=== PATIENT | female | born 1950 | race Caucasian/White ===

== ENCOUNTER → 2016-06-04 | Outpatient (CLI) | payer OTHER ==
[~2016-06-04] MED LIST: CALCIUM PO; GLCSC750600 PO; HYDR-5688 PO; MULT-506 PO; ONDA4TAB10 SL; OXYC-57 PO; PANT40TA PO; SUCR1TAB29 PO; VITAMIN D PO; VTMB12100 PO
[2016-06-04 16:43] LABS: BASO % 0.3 %; BASO ABS # 0.02 K/uL (0-0.2); COMPLETE YES; EOS % 1.3 %; HEMATOCRIT 41.9 % (37-47); IG% 0.2 %; LYMPH % 42.4 %; LYMPH ABS # 2.61 K/uL (1.2-3.4); MEAN CELL VOLUME 90.1 fL (80-100); MEAN CORPUSCULAR HEMOGLOBIN 29.7 pg (25-34); MEAN CORPUSCULAR HGB CONC 32.9 g/dl (32-36); MEAN PLATELET VOLUME 10.8 fL (7.4-10.4); NEUT % 48.8 %; PLATELET COUNT 282 K/uL (130-400); RED BLOOD COUNT 4.65 M/uL (4.2-5.4); WHITE BLOOD COUNT 6.15 K/uL (4.8-10.8)
[2016-06-04 17:02] LABS: ALT/SGPT 21 U/L (12-78); AMYLASE 49 U/L (25-115); BLOOD UREA NITROGEN 16 mg/dl (7-18); BUN/CREATININE RATIO 18.6 (10-20); C-REACTIVE PROTEIN < 0.29 mg/dl (0-0.29); CALCIUM 9.7 mg/dl (8.5-10.1); CARBON DIOXIDE 25 mmol/L (21-32); CHLORIDE 106 mmol/L (98-107); CREATININE 0.88 mg/dl (0.60-1.20); GLUCOSE 86 mg/dl (70-99); POTASSIUM 4.2 mmol/L (3.5-5.1); SODIUM 141 mmol/L (136-145)
[2016-06-04 17:05] LABS: ALB/GLOB RATIO 1.1 (0.9-2); ALKALINE PHOSPHATASE 82 U/L (45-117); AST/SGOT 17 U/L (15-37)
[2016-06-09 18:34] LABS: IGA SERUM 162 mg/dL (81-463); TIS TRANS IGA 1 U/mL (<4)
== END | disposition home or self-care (01) ==
LOC: C.LAB1850 16:03
PROVIDERS: ATTEND Internal Medicine
DX: R11.2 Nausea with vomiting, unspecified (principal)

== ENCOUNTER 2016-06-06 16:40 | Observation (INO) | payer OTHER ==
[~2016-06-06] VITALS: Ht 172.7 cm; Wt 93.7 kg
[~2016-06-06 16:40] MED LIST changes: -HYDR-5688 PO; -ONDA4TAB10 SL; -PANT40TA PO; -SUCR1TAB29 PO; -VTMB12100 PO
[2016-06-06] MEDS ORDERED: ONDANSETRON INJ 2 MG/ML 2 ML VIAL IV STA (16:51)
[2016-06-06] MEDS ORDERED: SODIUM CHLORIDE 0.9% 1000ML 1,000 ML IV STA ×2 (16:51)
--- NOTE | 2016-06-06 16:57 | EMERGENCY ROOM VISIT NOTE ---
History Report prepared by Jeff: Jackie Avila Under the Supervision of: Dr. Joaquin Connolly D.O. 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 The patient states that she started experiencing intermittent sharp upper abdominal cramping starting 2 years ago. She states that she usually vomits and then the pain resolves. She states that today the pain was not resolved after the continuing vomiting. She states that yesterday she started a new medication to treat her abdominal cramping and vomiting and states that yesterday after taking the medication she felt great, but then today started experiencing symptoms. The patient states that eating food worsens her symptoms. The patient states she has been having some chest pain but associates it with the persistent vomiting, but denies any blood in her stool, or swelling or pain in her legs. 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 Review of Systems See HPI for pertinent positives & negatives. A total of 10 systems reviewed and were otherwise negative. Past Medical & Surgical Medical Problems: (1) Abdominal pain Family History Patient reports no known family medical history. Social History Smoking Status: Never Smoker Alcohol Use: occasionally Marital Status: Occupation Status: unemployed Current/Historical Medications Scheduled Cyanocobalamin (Vitamin B-12), 100 MCG PO DAILY Glucosamine-Chondroitin (Glucosamine/Chondroitin), 1 TAB PO DAILY Multivitamin (Multivitamin), 1 TAB PO DAILY Pantoprazole (Protonix), 40 MG PO 2XWK Allergies Coded Allergies: No Known Allergies (Unverified , 06/06/16) Physical Exam Vital Signs Date Time Temp Pulse Resp B/P Pulse Ox O2 Delivery O2 Flow Rate FiO2 06/06/16 21:45 80 23 124/80 95 Room Air 06/06/16 21:38 91 06/06/16 19:55 Nasal Cannula 2.0 06/06/16 19:53 86 14 124/90 90 06/06/16 18:52 80 28 142/86 95 Room Air 06/06/16 17:28 75 06/06/16 16:44 36.7 77 24 135/94 94 Room Air Physical Exam GENERAL: Patient is awake, alert, and in no acute distress.Patient appears very anxious and uncomfortable. EYES: The conjunctivae are clear. The pupils are round and reactive. EARS, NOSE, MOUTH AND THROAT: The nose is without any evidence of any deformity. Mucous membranes are dry tongue is midline NECK: The neck is nontender and supple. RESPIRATORY: Normal respiratory effort is noted there is no evidence of wheezing rhonchi or rales CARDIOVASCULAR: Tachycardic rate and regular rhythm noted there no murmurs noted to auscultation. GASTROINTESTINAL: The abdomen is moderately distended but soft, no guarding or rigidity. MUSCULOSKELETAL/EXTREMITIES: There is no evidence of gross deformity full range of motion is noted in the hips and shoulders. SKIN: There is no obvious evidence of any rash. There are no petechiae, pallor or cyanosis noted. Trace pedal edema noted. NEUROLOGIC: Patient is awake alert and oriented x3. Medical Decision & Procedures ER Provider Diagnostic Interpretation: X-ray results as stated below per interpretation by me and the radiologist. ABDOMEN 2VIEW W/PA CHEST RTN CLINICAL HISTORY: Abdominal pain and vomiting COMPARISON STUDY: April 2011 FINDINGS: The heart is mildly enlarged. There is been interval increase in size of a very large hiatal hernia containing a large air-fluid level. No free air is visualized. There is no focal pulmonary consolidation. Erect and supine views the abdomen reveal no abnormally dilated loops of large or small bowel. There are no transition zones indicate bowel obstruction. There are surgical clips in the right upper quadrant consistent with a prior cholecystectomy. IMPRESSION: 1. Interval increase in the size of a very large hiatal hernia containing a large air-fluid level 2. No evidence of small bowel obstruction. No evidence of free air. Electronically signed by: Oscar Galarza M.D. 06/06/2016 5:52 PM Dictated Date/Time: 06/06/2016 5:[address] results as stated below per my review and radiologist interpretation. CT ABD/PELVIS IV AND ORAL CONT CLINICAL HISTORY: Epigastric abdominal pain COMPARISON STUDY: None. TECHNIQUE: Following the IV administration of 116 mL of Optiray-320, CT scan of the abdomen and pelvis was performed from the lung bases to the proximal femurs. Images are reviewed in the axial, sagittal, and coronal planes. IV contrast was administered without complication. CT DOSE: FINDINGS: Lower chest: There is a large paraesophageal hiatal hernia Liver: There is mild hepatic steatosis. There is minimal prominence of the intrahepatic biliary ducts most pronounced in the right lobe. No focal masses are visualized Gallbladder: Surgically absent. There is mild dilatation the common bile duct which measures 8 mm Spleen: Normal in size and attenuation. Pancreas: There is a 15 mm cystic/microcystic lesion within the pancreatic head. There is no associated ductal dilatation. 12 month follow-up is recommended, unless the patient desires additional workup at this time. Adrenal glands: Unremarkable. Kidneys: There is symmetric renal cortical enhancement. The kidneys are normal in size without hydronephrosis. Bowel: There are no transition zones indicate bowel obstruction. The appendix appears normal. There is diverticulosis. There are no acute peridiverticular inflammatory changes. Peritoneum: There is no intraperitoneal free air or abdominal ascites. Vasculature: The abdominal aorta is normal in course and caliber. Adenopathy: None. Pelvic viscera: The bladder, and pelvic viscera are unremarkable. Skeletal structures: No destructive osseous lesions are seen. IMPRESSION: 1. Large paraesophageal hernia. No evidence of gastric outlet obstruction 2. Normal appendix 3. Diverticulosis. No evidence of acute peridiverticular inflammatory change 4. 15 mm cystic/microcystic lesion within the pancreatic head. Electronically signed by: Oscar Galarza M.D. 06/06/2016 7:53 PM Dictated Date/Time: 06/06/2016 7:[address] OF THE CHEST WITH IV CONTRAST CLINICAL HISTORY: Epigastric pain COMPARISON STUDY: Chest x-ray dated 06/06/2016 TECHNIQUE: Following the IV administration of 116 mL of Optiray-320, CT of the thorax was performed from the thoracic inlet to the lung bases. Images are reviewed in the axial, sagittal, and coronal planes. IV contrast was administered without complication. CT DOSE: 1048.10 mGy.cm FINDINGS: Thyroid: There is a 27 mm right lobe thyroid nodule. Thoracic aorta: The thoracic aorta is normal in course and caliber, noting standard 3-vessel arch anatomy. No aneurysm or dissection is seen. Pulmonary vasculature: The pulmonary trunk is normal in caliber. There are no central filling defects identified to suggest pulmonary embolus. Note that this examination was not protocoled for the evaluation of pulmonary emboli. HEART: The heart is mildly enlarged. There is no significant pericardial effusion. Lungs and pleural spaces: There are dependent atelectatic changes. There are no pleural effusions. There is no focal pulmonary consolidation. Mediastinum: There is no mediastinal lymphadenopathy. Pao: Clear. Axilla: Clear. Upper abdomen: There is a large (10 cm craniocaudad dimension) paraesophageal hiatal hernia Skeletal structures: There are no lytic or blastic osseous lesions. IMPRESSION: 1. Large paraesophageal hiatal hernia 2. No evidence of focal pulmonary consolidation 3. No evidence of pathologic adenopathy 4. 27 mm right lobe thyroid nodule Electronically signed by: Oscar Galarza M.D. 06/06/2016 7:43 PM Dictated Date/Time: 06/06/2016 7:37 PM Laboratory Results 06/06/16 17:10 Red Blood Count 4.46, Mean Corpuscular Volume 87.9, Mean Corpuscular Hemoglobin 30.9, Mean Corpuscular Hemoglobin Concent 35.2, Mean Platelet Volume 10.5, Neutrophils (%) (Auto) 65.9, Lymphocytes (%) (Auto) 25.4, Monocytes (%) (Auto) 7.5, Eosinophils (%) (Auto) 0.6, Basophils (%) (Auto) 0.3, Neutrophils # (Auto) 5.20, Lymphocytes # (Auto) 2.00, Monocytes # (Auto) 0.59, Eosinophils # (Auto) 0.05, Basophils # (Auto) 0.02 06/06/16 17:10 Test 06/06/16 17:10 06/06/16 19:00 White Blood Count 7.88 K/uL (4.8-10.8) Red Blood Count 4.46 M/uL (4.2-5.4) Hemoglobin 13.8 g/dL (12.0-16.0) Hematocrit 39.2 % (37-47) Mean Corpuscular Volume 87.9 fL (80-100) Mean Corpuscular Hemoglobin 30.9 pg (25-34) Mean Corpuscular Hemoglobin Concent 35.2 g/dl (32-36) Platelet Count 284 K/uL (130-400) Mean Platelet Volume 10.5 fL (7.4-10.4) Neutrophils (%) (Auto) 65.9 % Lymphocytes (%) (Auto) 25.4 % Monocytes (%) (Auto) 7.5 % Eosinophils (%) (Auto) 0.6 % Basophils (%) (Auto) 0.3 % Neutrophils # (Auto) 5.20 K/uL (1.4-6.5) Lymphocytes # (Auto) 2.00 K/uL (1.2-3.4) Monocytes # (Auto) 0.59 K/uL (0.11-0.59) Eosinophils # (Auto) 0.05 K/uL (0-0.5) Basophils # (Auto) 0.02 K/uL (0-0.2) RDW Standard Deviation 42.7 fL (36.4-46.3) RDW Coefficient of Variation 13.4 % (11.5-14.5) Immature Granulocyte % (Auto) 0.3 % Immature Granulocyte # (Auto) 0.02 K/uL (0.00-0.02) Prothrombin Time 10.5 SECONDS (9.0-12.0) Prothromb Time International Ratio 1.0 (0.9-1.1) Activated Partial Thromboplast Time 25.2 SECONDS (21.0-31.0) Partial Thromboplastin Ratio 1.0 Anion Gap 11.0 mmol/L (3-11) Est Creatinine Clear Calc Drug Dose 73.6 ml/min Estimated GFR () 77.2 Estimated GFR (Non- 66.6 BUN/Creatinine Ratio 19.1 (10-20) Calcium Level 10.0 mg/dl (8.5-10.1) Magnesium Level 2.2 mg/dl (1.8-2.4) Total Bilirubin 0.3 mg/dl (0.2-1) Direct Bilirubin 0.1 mg/dl (0-0.2) Aspartate Amino Transf (AST/SGOT) 18 U/L (15-37) Alanine Aminotransferase (ALT/SGPT) 21 U/L (12-78) Alkaline Phosphatase 80 U/L (45-117) Total Creatine Kinase 93 U/L (26-192) Creatine Kinase MB 0.6 ng/ml (0.5-3.6) Creatine Kinase MB Ratio 0.6 (0-3.0) Troponin I < 0.015 ng/ml (0-0.045) Total Protein 7.5 gm/dl (6.4-8.2) Albumin 4.0 gm/dl (3.4-5.0) Lipase 112 U/L (73-393) Urine Color YELLOW Urine Appearance CLOUDY (CLEAR) Urine pH 5.0 (4.5-7.5) Urine Specific [place] 1.025 (1.000-1.030) Urine Protein NEG (NEG) Urine Glucose (UA) NEG (NEG) Urine Ketones 2+ (NEG) Urine Occult Blood NEG (NEG) Urine Nitrite NEG (NEG) Urine Bilirubin NEG (NEG) Urine Urobilinogen NEG (NEG) Urine Leukocyte Esterase MODERATE (NEG) Urine WBC (Auto) 10-30 /hpf (0-5) Urine RBC (Auto) 0-4 /hpf (0-4) Urine Hyaline Casts (Auto) 1-5 /lpf (0-5) Urine Epithelial Cells (Auto) >30 /lpf (0-5) Urine Bacteria (Auto) 1+ (NEG) Laboratory results per my review. Medications Administered Medications (Trade) Dose Ordered Sig/Jluis Route Start Time Stop Time Status Last Admin Dose Admin Sodium Chloride 1,000 ml @ 999 mls/hr Q1H1M STAT IV 06/06/16 16:51 06/06/16 17:51 DC 06/06/16 17:10 999 MLS/HR Sodium Chloride (Nss 1000ml) 1,000 ml @ 200 mls/hr Q5H STAT IV 06/06/16 16:51 06/06/16 21:50 DC 06/06/16 17:12 200 MLS/HR Morphine Sulfate (MoRPHine SULFATE INJ) 4 mg Q15M PRN IV 06/06/16 17:00 06/20/16 16:59 06/06/16 18:50 4 MG Ondansetron HCl 4 mg 4 mg NOW STAT IV 06/06/16 16:51 06/06/16 16:53 DC 06/06/16 17:10 4 MG Pantoprazole Sodium/Dextrose (Protonix Inj/D5 100ml) 120 ml @ 480 mls/hr 2300 IV 06/06/16 23:00 06/06/16 23:14 DC 06/06/16 23:08 480 MLS/HR ECG Indication: vomiting Rate (beats per minute): 77 Rhythm: normal sinus Findings: no ectopy, other (No ST segment abnormalities, decreased T wave amplitude noted. ) Comparison ECG Date: 05/01/2011 Change: no significant change Change: Decreased T wave amplitude abnormality new compared to previous. ED Course 165: The patient was evaluated in room A10. A complete history and physical examination were performed. 165: Ordered Zofran Inj 4 mg IV, NSS 1,000 ml @ 200 mls/hr IV, NSS 1,000 ml @ 999 mls/hr IV. 1700: Ordered Morphine Sulfate 4 mg IV . 1811:I discussed the case with Dr. Lincoln G[facility] and he recommend s CT scan to evaluate the hiatal hernia. 1814: I reevaluated the patient and she was hemodynamically stable. 2105: I reevaluated the patient and she states that her pain was better. 2112:I discussed the case with Dr. Cullen General Surgery. He said if the patient is able to go home he will se her tomorrow but if she gets admitted he will see her in consultation. 2127: I reevaluated the patient and she states that she does not feel well enough to go home tonight. 2149:I discussed the case with Dr. John [facility]. He agreed to evaluate the patient for further management and care. Medical Decision The patient's history was concerning for nausea, vomiting, diarrhea, and abdominal pain. Differential diagnosis: Etiologies such as gastroenteritis, food borne illness, infections, appendicitis , diverticulitis, inflammatory bowel disease, obstruction, GI bleed, biliary pathology, as well as others were entertained. The patient is a 65-year-old female who presented to the emergency department for an evaluation of upper abdominal pain nausea and vomiting. The patient has had the symptoms for approximately 2 weeks. They've become very significant and constant over the last few days. The patient has noticed that every time she eats she becomes very painful in her upper abdomen and then has nausea vomiting. Previously the nausea and vomiting would relieve the symptoms however tonight she has continued pain. The patient's chest x-ray did reveal a large hiatal hernia. I was concerned that the degree of symptoms could be related to an incarcerated hiatal hernia. CT the chest abdomen and pelvis was obtained to further evaluate the cause of the patient's symptoms. The patient was treated with IV fluids IV pain medicine IV antiemetics. On subsequent reevaluation she was feeling significantly improved. I discussed her case with the on-call general surgeon. The patient had recurrence of symptoms. For this reason I discussed her case with the on-call [facility] hospitalist group. They have agreed to evaluate the patient in the emergency department for further management and disposition. Consults Time Called: 1809 Consulting Physician: Dr. Lincoln Gastroenter[facility] Returned Call: 1811 I discussed the case with Dr. Lincoln Gastroenterology and he recommend s CT scan to evaluate the hiatal hernia. Additional Consults: Time Called: 2109 Consulted Physician: Dr. Cullen General Surgery Returned Call: 2112 Additional Comments: I discussed the case with Dr. Cullen General Surgery. He said if the patient is able to go home he will se her tomorrow but if she gets admitted he will see her in consultation. Time Called: 2134 Consulted Physician: Dr. Alvaro ARMENDAR[facility] Hospitalist Returned Call: 2149 Additional Comments: I discussed the case with Dr. Alvaro ARMENDAR[facility] Hospitalist. He agreed to evaluate the patient for further management and care. Impression Primary Impression: Intractable nausea and vomiting Additional Impressions: Hiatal hernia Epigastric abdominal pain Scribe Attestation The scribe's documentation has been prepared under my direction and personally reviewed by me in its entirety. I confirm that the note above accurately reflects all work, treatment, procedures, and medical decision making performed by me. Departure Information Dispostion Being Evaluated By Hospitalist Referrals Swetha Aviles M.D. (PCP) Problem Qualifiers
[2016-06-06] MEDS: MoRPHine SULFATE 4 MG/ML 1 ML CARP\\VIAL IV PRN ×2 (17:11→18:50)
[2016-06-06] MEDS ORDERED: PANT40TA PO (17:17)
[2016-06-06] MEDS ORDERED: VTMB12100 PO (17:17)
[2016-06-06 17:20] LABS: BASO % 0.3 %; BASO ABS # 0.02 K/uL (0-0.2); COMPLETE YES; EOS % 0.6 %; HEMATOCRIT 39.2 % (37-47); IG% 0.3 %; LYMPH % 25.4 %; MEAN CELL VOLUME 87.9 fL (80-100); MEAN CORPUSCULAR HEMOGLOBIN 30.9 pg (25-34); MEAN CORPUSCULAR HGB CONC 35.2 g/dl (32-36); MEAN PLATELET VOLUME 10.5 fL (7.4-10.4); MONO % 7.5 %; NEUT % 65.9 %; PLATELET COUNT 284 K/uL (130-400); RED BLOOD COUNT 4.46 M/uL (4.2-5.4); WHITE BLOOD COUNT 7.88 K/uL (4.8-10.8)
[2016-06-06 17:30] LABS: PROTHROMBIN TIME (PATIENT) 10.5 SECONDS (9.0-12.0)
[2016-06-06 17:39] LABS: ALT/SGPT 21 U/L (12-78); BLOOD UREA NITROGEN 17 mg/dl (7-18); BUN/CREATININE RATIO 19.1 (10-20); CARBON DIOXIDE 23 mmol/L (21-32); CHLORIDE 109 mmol/L (98-107); GLUCOSE 106 mg/dl (70-99); POTASSIUM 3.9 mmol/L (3.5-5.1); SODIUM 143 mmol/L (136-145)
[2016-06-06 17:44] LABS: ALKALINE PHOSPHATASE 80 U/L (45-117); AST/SGOT 18 U/L (15-37); CKMB/CK RATIO 0.6 (0-3.0)
--- NOTE | 2016-06-06 17:53 | DIAGNOSTIC IMAGING REPORT ---
ABDOMEN 2VIEW W/PA CHEST RTN CLINICAL HISTORY: Abdominal pain and vomiting COMPARISON STUDY: April 2011 FINDINGS: The heart is mildly enlarged. There is been interval increase in size of a very large hiatal hernia containing a large air-fluid level. No free air is visualized. There is no focal pulmonary consolidation. Erect and supine views the abdomen reveal no abnormally dilated loops of large or small bowel. There are no transition zones indicate bowel obstruction. There are surgical clips in the right upper quadrant consistent with a prior cholecystectomy. IMPRESSION: 1. Interval increase in the size of a very large hiatal hernia containing a large air-fluid level 2. No evidence of small bowel obstruction. No evidence of free air. Electronically signed by: Oscar Galarza M.D. 06/06/2016 5:52 PM Dictated Date/Time: 06/06/2016 5:51 PM
[2016-06-06] MEDS ORDERED: OPTIRAY 320 IV PRN (18:45)
[2016-06-06 19:20] LABS: URINE APPEARANCE CLOUDY (CLEAR); URINE BILIRUBIN NEG (NEG); URINE COLOR YELLOW; URINE EPITHELIAL CELL AUTO >30 /lpf (0-5); URINE NITRITE NEG (NEG); URINE SPECIFIC GRAVITY 1.025 (1.000-1.030); UROBILINOGEN NEG (NEG)
[2016-06-06 19:22] LABS: MANUAL MICROSCOPIC REQUIRED? NO; REVIEW REQ? NO
--- NOTE | 2016-06-06 19:44 | DIAGNOSTIC IMAGING REPORT ---
CT OF THE CHEST WITH IV CONTRAST CLINICAL HISTORY: Epigastric pain COMPARISON STUDY: Chest x-ray dated 06/06/2016 TECHNIQUE: Following the IV administration of 116 mL of Optiray-320, CT of the thorax was performed from the thoracic inlet to the lung bases. Images are reviewed in the axial, sagittal, and coronal planes. IV contrast was administered without complication. CT DOSE: 1048.10 mGy.cm FINDINGS: Thyroid: There is a 27 mm right lobe thyroid nodule. Thoracic aorta: The thoracic aorta is normal in course and caliber, noting standard 3-vessel arch anatomy. No aneurysm or dissection is seen. Pulmonary vasculature: The pulmonary trunk is normal in caliber. There are no central filling defects identified to suggest pulmonary embolus. Note that this examination was not protocoled for the evaluation of pulmonary emboli. HEART: The heart is mildly enlarged. There is no significant pericardial effusion. Lungs and pleural spaces: There are dependent atelectatic changes. There are no pleural effusions. There is no focal pulmonary consolidation. Mediastinum: There is no mediastinal lymphadenopathy. Pao: Clear. Axilla: Clear. Upper abdomen: There is a large (10 cm craniocaudad dimension) paraesophageal hiatal hernia Skeletal structures: There are no lytic or blastic osseous lesions. IMPRESSION: 1. Large paraesophageal hiatal hernia 2. No evidence of focal pulmonary consolidation 3. No evidence of pathologic adenopathy 4. 27 mm right lobe thyroid nodule Electronically signed by: Oscar Galarza M.D. 06/06/2016 7:43 PM Dictated Date/Time: 06/06/2016 7:37 PM
--- NOTE | 2016-06-06 19:54 | DIAGNOSTIC IMAGING REPORT ---
CT ABD/PELVIS IV AND ORAL CONT CLINICAL HISTORY: Epigastric abdominal pain COMPARISON STUDY: None. TECHNIQUE: Following the IV administration of 116 mL of Optiray-320, CT scan of the abdomen and pelvis was performed from the lung bases to the proximal femurs. Images are reviewed in the axial, sagittal, and coronal planes. IV contrast was administered without complication. CT DOSE: FINDINGS: Lower chest: There is a large paraesophageal hiatal hernia Liver: There is mild hepatic steatosis. There is minimal prominence of the intrahepatic biliary ducts most pronounced in the right lobe. No focal masses are visualized Gallbladder: Surgically absent. There is mild dilatation the common bile duct which measures 8 mm Spleen: Normal in size and attenuation. Pancreas: There is a 15 mm cystic/microcystic lesion within the pancreatic head. There is no associated ductal dilatation. 12 month follow-up is recommended, unless the patient desires additional workup at this time. Adrenal glands: Unremarkable. Kidneys: There is symmetric renal cortical enhancement. The kidneys are normal in size without hydronephrosis. Bowel: There are no transition zones indicate bowel obstruction. The appendix appears normal. There is diverticulosis. There are no acute peridiverticular inflammatory changes. Peritoneum: There is no intraperitoneal free air or abdominal ascites. Vasculature: The abdominal aorta is normal in course and caliber. Adenopathy: None. Pelvic viscera: The bladder, and pelvic viscera are unremarkable. Skeletal structures: No destructive osseous lesions are seen. IMPRESSION: 1. Large paraesophageal hernia. No evidence of gastric outlet obstruction 2. Normal appendix 3. Diverticulosis. No evidence of acute peridiverticular inflammatory change 4. 15 mm cystic/microcystic lesion within the pancreatic head. Electronically signed by: Oscar Galarza M.D. 06/06/2016 7:53 PM Dictated Date/Time: 06/06/2016 7:43 PM
[2016-06-06] MEDS ORDERED: ALUMINUM/MAGNESIUM/SIMETH (MAALOX MAX) 30 ML UDC PO PRN (22:45)
[2016-06-06] MEDS ORDERED: ACETAMINOPHEN 325 MG TAB PO PRN (22:45)
[2016-06-06] MEDS ORDERED: ONDANSETRON INJ 2 MG/ML 2 ML VIAL IV PRN (22:45)
[2016-06-06] MEDS ORDERED: POLYETHYLENE (MIRALAX) 17 GM PACK PO PRN ×2 (22:45)
[2016-06-06] MEDS ORDERED: MAGNESIUM HYDROXIDE SUSP 30 ML UDC PO PRN (22:45)
--- NOTE | 2016-06-06 22:48 | History and Physical ---
History & Physical Date & Time of Service: Jun 06, 2016 at 22:42 Chief Complaint: Stomach Cramps; Vomiting Primary Care Physician: Swetha Aviles M.D. History of Present Illness Source: patient, spouse Mrs Ghislaine Kaminski is a 65 year old female with history of "GI issues" for the last two years. She reports after eating daily she gets abdominal discomfort, which comes and goes on its own, and usually resolves after she vomits. She saw Dr Lincoln recently who had arranged some scans to be done in the near future. Earlier today she started to feel nauseated and had persistent nausea and vomiting. She reported even sips of water would make her gag. She was also started on a new medication to treat abdominal cramping which helped her symptoms yesterday, but today had the same symptoms. Currently, she reports feeling better after receiving anti-emetics. She feels thirsty. She denies any chest pain, difficulty breathing, or swelling of the legs. Past Medical/Surgical History Medical Problems: (1) Abdominal pain Status: Chronic Family History Patient reports no known family medical history. No pertinent FHx Social History Smoking Status: Never Smoker Marital Status: Housing status: lives with family Occupational Status: unemployed Immunizations History of Influenza Vaccine: Yes History of Tetanus Vaccine?: Yes History of Pneumococcal: No History of Hepatitis B Vaccine: No Multi-Drug Resistant Organisms History of MDRO: No Allergies Coded Allergies: No Known Allergies (Unverified , 06/06/16) Home Medications Scheduled Cyanocobalamin (Vitamin B-12), 100 MCG PO DAILY Glucosamine-Chondroitin (Glucosamine/Chondroitin), 1 TAB PO DAILY Multivitamin (Multivitamin), 1 TAB PO DAILY Pantoprazole (Protonix), 40 MG PO 2XWK Review of Systems See HPI for pertinent positives & negatives. A total of 10 systems reviewed and were otherwise negative. Physical Exam Vital Signs Date Time Temp Pulse Resp B/P Pulse Ox O2 Delivery O2 Flow Rate FiO2 06/06/16 21:45 80 23 124/80 95 Room Air 06/06/16 21:38 91 06/06/16 19:55 Nasal Cannula 2.0 06/06/16 19:53 86 14 124/90 90 06/06/16 18:52 80 28 142/86 95 Room Air 06/06/16 17:28 75 1/26/17 16:44 36.7 77 24 135/94 94 Room Air General Appearance: WD/WN, no apparent distress Head: normocephalic, atraumatic Eyes: normal inspection ENT: hearing grossly normal Neck: supple, no JVD Respiratory/Chest: lungs clear, normal breath sounds, no respiratory distress Cardiovascular: regular rate, rhythm, no murmur, normal peripheral pulses Abdomen/GI: normal bowel sounds, non tender, soft Back: no CVA tenderness, no muscle spasm, normal range of motion Extremities/Musculoskelatal: no pedal edema Neurologic/Psych: alert, normal mood/affect, oriented x 3 Skin: no rash Diagnostics Laboratory Results Results Past 24 Hours Test 06/06/16 17:10 06/06/16 19:00 Range/Units White Blood Count 7.88 4.8-10.8 K/uL Red Blood Count 4.46 4.2-5.4 M/uL Hemoglobin 13.8 12.0-16.0 g/dL Hematocrit 39.2 37-47 % Mean Corpuscular Volume 87.9 80-100 fL Mean Corpuscular Hemoglobin 30.9 25-34 pg Mean Corpuscular Hemoglobin Concent 35.2 32-36 g/dl Platelet Count 284 130-400 K/uL Mean Platelet Volume 10.5 7.4-10.4 fL Neutrophils (%) (Auto) 65.9 % Lymphocytes (%) (Auto) 25.4 % Monocytes (%) (Auto) 7.5 % Eosinophils (%) (Auto) 0.6 % Basophils (%) (Auto) 0.3 % Neutrophils # (Auto) 5.20 1.4-6.5 K/uL Lymphocytes # (Auto) 2.00 1.2-3.4 K/uL Monocytes # (Auto) 0.59 0.11-0.59 K/uL Eosinophils # (Auto) 0.05 0-0.5 K/uL Basophils # (Auto) 0.02 0-0.2 K/uL RDW Standard Deviation 42.7 36.4-46.3 fL RDW Coefficient of Variation 13.4 11.5-14.5 % Immature Granulocyte % (Auto) 0.3 % Immature Granulocyte # (Auto) 0.02 0.00-0.02 K/uL Prothrombin Time 10.5 9.0-12.0 SECONDS Prothromb Time International Ratio 1.0 0.9-1.1 Activated Partial Thromboplast Time 25.2 21.0-31.0 SECONDS Partial Thromboplastin Ratio 1.0 Sodium Level 143 136-145 mmol/L Potassium Level 3.9 3.5-5.1 mmol/L Chloride Level 109 98-107 mmol/L Carbon Dioxide Level 23 21-32 mmol/L Anion Gap 11.0 3-11 mmol/L Blood Urea Nitrogen 17 7-18 mg/dl Creatinine 0.90 0.60-1.20 mg/dl Est Creatinine Clear Calc Drug Dose 73.6 ml/min Estimated GFR () 77.2 Estimated GFR (Non- 66.6 BUN/Creatinine Ratio 19.1 10-20 Random Glucose 106 70-99 mg/dl Calcium Level 10.0 8.5-10.1 mg/dl Magnesium Level 2.2 1.8-2.4 mg/dl Total Bilirubin 0.3 0.2-1 mg/dl Direct Bilirubin 0.1 0-0.2 mg/dl Aspartate Amino Transf (AST/SGOT) 18 15-37 U/L Alanine Aminotransferase (ALT/SGPT) 21 12-78 U/L Alkaline Phosphatase 80 45-117 U/L Total Creatine Kinase 93 26-192 U/L Creatine Kinase MB 0.6 0.5-3.6 ng/ml Creatine Kinase MB Ratio 0.6 0-3.0 Troponin I < 0.015 0-0.045 ng/ml Total Protein 7.5 6.4-8.2 gm/dl Albumin 4.0 3.4-5.0 gm/dl Lipase 112 73-393 U/L Urine Color YELLOW Urine Appearance CLOUDY CLEAR Urine pH 5.0 4.5-7.5 Urine Specific [place] 1.025 1.000-1.030 Urine Protein NEG NEG Urine Glucose (UA) NEG NEG Urine Ketones 2+ NEG Urine Occult Blood NEG NEG Urine Nitrite NEG NEG Urine Bilirubin NEG NEG Urine Urobilinogen NEG NEG Urine Leukocyte Esterase MODERATE NEG Urine WBC (Auto) 10-30 0-5 /hpf Urine RBC (Auto) 0-4 0-4 /hpf Urine Hyaline Casts (Auto) 1-5 0-5 /lpf Urine Epithelial Cells (Auto) >30 0-5 /lpf Urine Bacteria (Auto) 1+ NEG Microbiology Results 06/06/16 Urine Culture, Received Pending Diagnostic Radiology ABDOMEN 2VIEW W/PA CHEST RTN CLINICAL HISTORY: Abdominal pain and vomiting COMPARISON STUDY: April 2011 FINDINGS: The heart is mildly enlarged. There is been interval increase in size of a very large hiatal hernia containing a large air-fluid level. No free air is visualized. There is no focal pulmonary consolidation. Erect and supine views the abdomen reveal no abnormally dilated loops of large or small bowel. There are no transition zones indicate bowel obstruction. There are surgical clips in the right upper quadrant consistent with a prior cholecystectomy. IMPRESSION: 1. Interval increase in the size of a very large hiatal hernia containing a large air-fluid level 2. No evidence of small bowel obstruction. No evidence of free air. Electronically signed by: Oscar Galarza M.D. 06/06/2016 5:52 PM Dictated Date/Time: 06/06/2016 5:[address] results as stated below per my review and radiologist interpretation. CT ABD/PELVIS IV AND ORAL CONT CLINICAL HISTORY: Epigastric abdominal pain COMPARISON STUDY: None. TECHNIQUE: Following the IV administration of 116 mL of Optiray-320, CT scan of the abdomen and pelvis was performed from the lung bases to the proximal femurs. Images are reviewed in the axial, sagittal, and coronal planes. IV contrast was administered without complication. CT DOSE: FINDINGS: Lower chest: There is a large paraesophageal hiatal hernia Liver: There is mild hepatic steatosis. There is minimal prominence of the intrahepatic biliary ducts most pronounced in the right lobe. No focal masses are visualized Gallbladder: Surgically absent. There is mild dilatation the common bile duct which measures 8 mm Spleen: Normal in size and attenuation. Pancreas: There is a 15 mm cystic/microcystic lesion within the pancreatic head. There is no associated ductal dilatation. 12 month follow-up is recommended, unless the patient desires additional workup at this time. Adrenal glands: Unremarkable. Kidneys: There is symmetric renal cortical enhancement. The kidneys are normal in size without hydronephrosis. Bowel: There are no transition zones indicate bowel obstruction. The appendix appears normal. There is diverticulosis. There are no acute peridiverticular inflammatory changes. Peritoneum: There is no intraperitoneal free air or abdominal ascites. Vasculature: The abdominal aorta is normal in course and caliber. Adenopathy: None. Pelvic viscera: The bladder, and pelvic viscera are unremarkable. Skeletal structures: No destructive osseous lesions are seen. IMPRESSION: 1. Large paraesophageal hernia. No evidence of gastric outlet obstruction 2. Normal appendix 3. Diverticulosis. No evidence of acute peridiverticular inflammatory change 4. 15 mm cystic/microcystic lesion within the pancreatic head. Electronically signed by: Oscar Galarza M.D. 06/06/2016 7:53 PM Dictated Date/Time: 06/06/2016 7:[address] OF THE CHEST WITH IV CONTRAST CLINICAL HISTORY: Epigastric pain COMPARISON STUDY: Chest x-ray dated 06/06/2016 TECHNIQUE: Following the IV administration of 116 mL of Optiray-320, CT of the thorax was performed from the thoracic inlet to the lung bases. Images are reviewed in the axial, sagittal, and coronal planes. IV contrast was administered without complication. CT DOSE: 1048.10 mGy.cm FINDINGS: Thyroid: There is a 27 mm right lobe thyroid nodule. Thoracic aorta: The thoracic aorta is normal in course and caliber, noting standard 3-vessel arch anatomy. No aneurysm or dissection is seen. Pulmonary vasculature: The pulmonary trunk is normal in caliber. There are no central filling defects identified to suggest pulmonary embolus. Note that this examination was not protocoled for the evaluation of pulmonary emboli. HEART: The heart is mildly enlarged. There is no significant pericardial effusion. Lungs and pleural spaces: There are dependent atelectatic changes. There are no pleural effusions. There is no focal pulmonary consolidation. Mediastinum: There is no mediastinal lymphadenopathy. Pao: Clear. Axilla: Clear. Upper abdomen: There is a large (10 cm craniocaudad dimension) paraesophageal hiatal hernia Skeletal structures: There are no lytic or blastic osseous lesions. IMPRESSION: 1. Large paraesophageal hiatal hernia 2. No evidence of focal pulmonary consolidation 3. No evidence of pathologic adenopathy 4. 27 mm right lobe thyroid nodule Electronically signed by: Oscar Galarza M.D. 06/06/2016 7:43 PM Dictated Date/Time: 06/06/2016 7:37 PM Normal EKG Impression Assessment and Plan 65 yo F with large para-esophageal hernia, causing abdominal symptoms over 2 years, who presents with intractable nausea and vomiting. Plan: Para-esophageal hernia - Dr Case consulted - Dr Cullen (General Surgery) consulted - Protonix drip Nausea/vomiting - Zofran, Phenergan PRN - IV fluids - Hold her home vitamin b12 and multivitamin Level of Care Med/Surg Resuscitation Status FULL RESUSCITATION VTE Prophylaxis VTE Risk Assessment Done? Y/N: Yes Risk Level: Moderate Given or contraindicated: Unfractionated heparin SQ Resident Tracking Resident Involvement: Resident Care Provided Care Provided: [facility] Medicine Assessment and Plan ATTENDING ADDENDUM: I have seen and examined this patient, have directed their medical care, have supervised the medical doctor, and agree with the H&P as noted above, with the following additions below. History of Present Illness: The patient is a 65-year-old female who reports 2 years of abdominal discomfort after eating daily which usually resolves after she vomits. She recently saw a malt house operator Dr. Lincoln, who had arranged for some multi-upcoming studies to be done however, her symptoms intensified with worsening nausea and vomiting to the point that even sips of water will make her gag. She was recently started on Carafate, which briefly helped her symptoms, and presents emergency department for assessment today. After having received reflux medications and Zofran IV, she does feel mildly improved but still has significant nausea and abdominal discomfort. Next Review of Systems: The patient denies palpitations, lower extremity swelling, vision change, hearing change, sore throat, fevers, chills, sweats, pelvic pain, blood in urine or stool, dysuria, urinary frequency or urgency, lightheadedness, dizziness, headache, memory loss, rash, abnormal bruising or bleeding, imbalance , focal weakness, numbness or tingling in arms or legs, arthralgias or myalgias , back or neck pain, night sweats, or allergy symptoms. The review of systems is otherwise negative other than for that already noted above, and at least 10 systems have been reviewed. Physical Exam: The patient is awake, well-developed and adequately nourished, alert and oriented 3, normocephalic and atraumatic, lying in bed and in mild acute distress secondary to epigastric discomfort. HEENT--PERRL, EOMI, mucous membranes moist, and oropharynx normal. Neck--supple, no JVD or bruits, thyroid normal, trachea midline, no adenopathy. Heart--normal S1 and S2, no extra beats, no murmurs, rubs or gallops. Lungs--clear bilaterally , no respiratory distress, no accessory muscle use. Abdomen--normal bowel sounds and soft, tender over epigastrium area, nondistended. Extremities--no cyanosis, clubbing or edema. There are good distal pulses b/l. Dermatologic--normal skin turgor, normal color, warm and dry, no abnormal lymph nodes, no rash. Neurologic--cranial nerves II through XII grossly intact, motor and sensory examination normal. Rheumatologic--normal range of motion, nontender, muscles and joints. Psychiatric--normal affect. Assessment and Plan: Large paraesophageal hiatal hernia, with no focal chronic consolidation, and no evidence of pathologic adenopathy. The patient be admitted to the medical floor , and will be allowed to have sips of water. She'll be placed on Protonix 40 mg IV, Zofran 4 mg IV every 6 hours when necessary. We'll consult her malt house operator Dr. Lincoln, and consult Dr. Cullen, from general surgery, who is aware of her processes in the emergency department. She is very symptomatic. And certainly it is in consideration of being a surgical candidate. If her symptoms should worsen overnight, IV metoclopramide will be administered. 27 mm right thyroid lobe nodule--check a TSH, free T4, free T3, will need to get a thyroid ultrasound and consideration for biopsy.
[2016-06-06] MEDS ORDERED: IV FLUIDS COMPLETED PRN (23:00)
[2016-06-06] MEDS ORDERED: PANTOprazole INJ 80 MG in DEXTROSE 5% 100ML IV SCH (23:00)
[2016-06-06] MEDS: PANTOprazole INJ 40 MG in DEXTROSE 5% 100ML IV SCH ×2 (23:25→23:28)
[2016-06-07] VITALS: BP 115/69; PULSE 66; TEMP 36.7; O2SAT 93
[2016-06-07] MEDS: SODIUM CHLOR 0.45% + 20MEQ KCL 1,000 ML IV SCH ×3 (00:29→18:06)
[2016-06-07] MEDS: HEPARIN SOD 5000 UNIT/0.5 ML CARP SQ SCH ×2 (00:30→10:24)
[2016-06-07 03:30] VITALS: Ht 172.7 cm; Wt 93.7 kg
[2016-06-07] MEDS: PANTOprazole INJ 40 MG in DEXTROSE 5% 100ML IV SCH ×4 (03:56→19:26)
[2016-06-07 06:41] LABS: BASO % 0.3 %; BASO ABS # 0.02 K/uL (0-0.2); COMPLETE YES; EOS % 1.1 %; HEMATOCRIT 35.6 % (37-47); IG% 0.1 %; LYMPH % 40.8 %; LYMPH ABS # 3.01 K/uL (1.2-3.4); MEAN CELL VOLUME 89.7 fL (80-100); MEAN CORPUSCULAR HEMOGLOBIN 29.5 pg (25-34); MEAN CORPUSCULAR HGB CONC 32.9 g/dl (32-36); MEAN PLATELET VOLUME 10.1 fL (7.4-10.4); MONO % 9.6 %; NEUT % 48.1 %; PLATELET COUNT 227 K/uL (130-400); RED BLOOD COUNT 3.97 M/uL (4.2-5.4); WHITE BLOOD COUNT 7.38 K/uL (4.8-10.8)
[2016-06-07 07:00] VITALS: BP 96/63; PULSE 65; TEMP 36.8; O2SAT 93
[2016-06-07 07:35] LABS: BUN/CREATININE RATIO 13.3 (10-20); CALCIUM 8.6 mg/dl (8.5-10.1); CREATININE 0.82 mg/dl (0.60-1.20); POTASSIUM 3.8 mmol/L (3.5-5.1)
[2016-06-07 07:43] LABS: ALB/GLOB RATIO 1.1 (0.9-2); THYROID STIMULATING HORMONE 0.078 uIu/ml (0.300-4.500)
[2016-06-07] MEDS ORDERED: PNEUMOCOCCAL POLYSACCHARIDES 25 MCG/0.5 ML VIAL/SYR IM. ONE (08:00)
[2016-06-07] MEDS ORDERED: PNEUMOCOCCAL ADMINISTRATION CHARGE ONE (08:00)
--- NOTE | 2016-06-07 09:35 | Gastrointestinal Consultation ---
Gastrointestinal Consultation Date of Consultation: Jun 07, 2016 Attending Physician: Dr. Gardner Consulting Physician: Tashia Blankenship PA-C Reason for Consultation: Large Esophageal Hernia History of Present Illness Patient is a 65 year old female who presents to the hospital after experiencing consistent abdominal discomfort that had previously been intermittent. She reports that the pain is epigastric. It worsens with eating and improves if she forces herself to vomit. She recently saw Dr. Lincoln in the office and was scheduled for outpatient testing as well as placed on PPI & Carafate therapy. She reports that even drinking small volumes of liquids causes her to vomit. As for a GI work-up, she has been on several PPI therapies previously. She underwent a cholecystectomy without improvement of her symptoms. She had an EGD in July [address] Mendez of [facility] that was unremarkable with the exception of her hiatal hernia. She reports she also had a GI work-up in [place] within the past 1 year that was unremarkable, though I do not have records of this. At present, she is NPO. She has been given PPI therapy & antiemetics and reports resolution of her symptoms. She reports she is moving her bowels. She denies GI bleeding. She denies acid reflux or heartburn at present. A CT scan performed since admission indicated a large paraesophageal hernia. She also was noted to have a 15 mm cystic lesion in the head of the pancreas. She denies a family history of GI malignancy. She offers no further complaints. Past Medical/Surgical History Medical Problems: (1) Epigastric abdominal pain Status: Acute (2) Hiatal hernia Status: Acute (3) Intractable nausea and vomiting Status: Acute Past Medical History: chronic abdominal pain, arthritis Past Surgical History: Cholecystectomy, EGD, colonoscopy, tonsillectomy, wisdom teeth extraction Family History Patient reports no known family medical history. Social History Smoking Status: Never Smoker Alcohol Use: occasionally Marital Status: Occupation Status: unemployed Allergies Coded Allergies: No Known Allergies (Unverified , 06/06/16) Current Medications Home Meds and Scripts Medications Dose Route/Sig Max Daily Dose Days Date Category Protonix (Pantoprazole Sodium) 40 Mg Tab 40 Mg PO 2XWK 06/06/16 Reported Vitamin B-12 (Cyanocobalamin) 100 Mcg Tab 100 Mcg PO DAILY 06/06/16 Reported Multivitamin (Multivitamins) Tab 1 Tab PO DAILY 05/01/11 Reported Glucosamine/Chondroitin 750 Mg/600 Mg Cap 1 Tab PO DAILY 05/01/11 Reported Review of Systems Constitutional: No problem reported Eyes: No problem reported Respiratory: No cough, No shortness of breath Cardiac: No chest pain Abdomen: No GI bleeding, No constipation, No diarrhea, No nausea, No pain ( improved since NPO), No vomiting Musculoskeletal: No joint pain Skin: No problem reported Physical Exam Date Time Temp Pulse Resp B/P Pulse Ox O2 Delivery O2 Flow Rate FiO2 06/07/16 07:20 Room Air 06/07/16 07:00 36.8 65 18 96/63 93 Room Air 06/07/16 00:00 36.7 66 18 115/69 93 Room Air 06/06/16 23:38 63 19 110/73 96 Nasal Cannula 2.0 06/06/16 21:45 80 23 124/80 95 Room Air 06/06/16 21:38 91 06/06/16 19:55 Nasal Cannula 2.0 06/06/16 19:53 86 14 124/90 90 06/06/16 18:52 80 28 142/86 95 Room Air 06/06/16 17:28 75 06/06/16 16:44 36.7 77 24 135/94 94 Room Air General Appearance: WD/WN, no apparent distress Eyes: normal inspection, PERRL Respiratory/Chest: lungs clear, normal breath sounds Cardiovascular: regular rate, rhythm Abdomen: normal bowel sounds, non tender, soft Extremities: non-tender Neurologic/Psych: alert, oriented x 3 Skin: normal color Laboratory Results Last 24 Hours Test 06/06/16 17:10 06/06/16 19:00 06/07/16 06:27 White Blood Count 7.88 K/uL 7.38 K/uL Red Blood Count 4.46 M/uL 3.97 M/uL Hemoglobin 13.8 g/dL 11.7 g/dL Hematocrit 39.2 % 35.6 % Mean Corpuscular Volume 87.9 fL 89.7 fL Mean Corpuscular Hemoglobin 30.9 pg 29.5 pg Mean Corpuscular Hemoglobin Concent 35.2 g/dl 32.9 g/dl Platelet Count 284 K/uL 227 K/uL Mean Platelet Volume 10.5 fL 10.1 fL Neutrophils (%) (Auto) 65.9 % 48.1 % Lymphocytes (%) (Auto) 25.4 % 40.8 % Monocytes (%) (Auto) 7.5 % 9.6 % Eosinophils (%) (Auto) 0.6 % 1.1 % Basophils (%) (Auto) 0.3 % 0.3 % Neutrophils # (Auto) 5.20 K/uL 3.55 K/uL Lymphocytes # (Auto) 2.00 K/uL 3.01 K/uL Monocytes # (Auto) 0.59 K/uL 0.71 K/uL Eosinophils # (Auto) 0.05 K/uL 0.08 K/uL Basophils # (Auto) 0.02 K/uL 0.02 K/uL RDW Standard Deviation 42.7 fL 44.4 fL RDW Coefficient of Variation 13.4 % 13.6 % Immature Granulocyte % (Auto) 0.3 % 0.1 % Immature Granulocyte # (Auto) 0.02 K/uL 0.01 K/uL Prothrombin Time 10.5 SECONDS Prothromb Time International Ratio 1.0 Activated Partial Thromboplast Time 25.2 SECONDS Partial Thromboplastin Ratio 1.0 Sodium Level 143 mmol/L 143 mmol/L Potassium Level 3.9 mmol/L 3.8 mmol/L Chloride Level 109 mmol/L 110 mmol/L Carbon Dioxide Level 23 mmol/L 25 mmol/L Anion Gap 11.0 mmol/L 8.0 mmol/L Blood Urea Nitrogen 17 mg/dl 11 mg/dl Creatinine 0.90 mg/dl 0.82 mg/dl Est Creatinine Clear Calc Drug Dose 73.6 ml/min 80.8 ml/min Estimated GFR () 77.2 86.4 Estimated GFR (Non- 66.6 74.6 BUN/Creatinine Ratio 19.1 13.3 Random Glucose 106 mg/dl 83 mg/dl Calcium Level 10.0 mg/dl 8.6 mg/dl Magnesium Level 2.2 mg/dl Total Bilirubin 0.3 mg/dl 0.5 mg/dl Direct Bilirubin 0.1 mg/dl Aspartate Amino Transf (AST/SGOT) 18 U/L 20 U/L Alanine Aminotransferase (ALT/SGPT) 21 U/L 23 U/L Alkaline Phosphatase 80 U/L 66 U/L Total Creatine Kinase 93 U/L Creatine Kinase MB 0.6 ng/ml Creatine Kinase MB Ratio 0.6 Troponin I < 0.015 ng/ml Total Protein 7.5 gm/dl 5.8 gm/dl Albumin 4.0 gm/dl 3.0 gm/dl Lipase 112 U/L Hepatitis C Antibody Screen NEG Urine Color YELLOW Urine Appearance CLOUDY Urine pH 5.0 Urine Specific [place] 1.025 Urine Protein NEG Urine Glucose (UA) NEG Urine Ketones 2+ Urine Occult Blood NEG Urine Nitrite NEG Urine Bilirubin NEG Urine Urobilinogen NEG Urine Leukocyte Esterase MODERATE Urine WBC (Auto) 10-30 /hpf Urine RBC (Auto) 0-4 /hpf Urine Hyaline Casts (Auto) 1-5 /lpf Urine Epithelial Cells (Auto) >30 /lpf Urine Bacteria (Auto) 1+ Globulin 2.8 gm/dl Albumin/Globulin Ratio 1.1 Thyroid Stimulating Hormone (TSH) 0.078 uIu/ml Free Thyroxine 1.20 ng/dl Impression Patient is a 65 year old female with postprandial epigastric pain and nausea relieved with vomiting. CT imaging indicates a large paraesophageal hernia. Patient is feeling better since being NPO. She also was noted to have CT findings of a 15 mm pancreatic head lesion. Plan 1) Recommend general surgery evaluation of paraesophageal hernia as this is likely contributing to patient's symptoms. After conversation with general surgery, will plan for EGD today prior to any surgical interventions that may be suggested. 2) Continue Protonix 40 mg IV. Patient was taking Protonix 40 mg daily as an outpatient as well as Carafate 1 gm QID. 3) Patient will need outpatient EUS once hernia has been addressed for further evaluation of pancreatic head lesion. 4) Supportive care per primary team. Thank you for allowing us to participate in the care of this patient. If you should have any further questions or concerns, do not hesitate to contact us. Agree with CATHRYN Carr as above Abd: Soft, Tender epigastric area, ND, +BS EGD showed a large paraesophageal hernia and gastritis with biopsies Discussed case with Dr. Cullen, who will see her as outpatient early next week. Will need EUS as outpatient secondary to pancreatic head lesion. Continue current therapy Advance diet as tolerated.
[2016-06-07] MEDS: ACETAMINOPHEN IV 650 MG in EMPTY BAG 0 ML IV PRN ×2 (09:54→18:08)
[2016-06-07 10:39] VITALS: BP 96/63; PULSE 65; TEMP 36.8; O2SAT 93
--- NOTE | 2016-06-07 11:52 | Hospitalist Progress Note ---
Hospitalist Progress Note Date of Service Jun 07, 2016. (Nisha Boyce PA-C) Subjective Pt evaluation today including: conversation w/ patient, physical exam, chart review, lab review, review of studies, review of inpatient medication list Patient feeling much better. Denies any nausea or vomiting. No abdominal pain. She denies any changes in bowel movements. She has been suffering with this pain over the last several months. She recently saw Dr. Lincoln from GI Additional Comments: 6 system review negative. Please see pertinent positives in the history of present illness section. (Nisha Boyce PA-C) Objective Vital Signs Date Time Temp Pulse Resp B/P Pulse Ox O2 Delivery O2 Flow Rate FiO2 06/07/16 11:35 37.1 62 18 120/75 94 Room Air 06/07/16 10:39 36.8 65 18 96/63 93 Room Air 06/07/16 07:20 Room Air 06/07/16 07:00 36.8 65 18 96/63 93 Room Air 06/07/16 00:00 36.7 66 18 115/69 93 Room Air 06/06/16 23:38 63 19 110/73 96 Nasal Cannula 2.0 06/06/16 21:45 80 23 124/80 95 Room Air 06/06/16 21:38 91 06/06/16 19:55 Nasal Cannula 2.0 06/06/16 19:53 86 14 124/90 90 06/06/16 18:52 80 28 142/86 95 Room Air 06/06/16 17:28 75 06/06/16 16:44 36.7 77 24 135/94 94 Room Air (Nisha Boyce PA-C) Physical Exam General Appearance: no apparent distress Neck: no JVD Respiratory/Chest: lungs clear Cardiovascular: regular rate, rhythm Abdomen: normal bowel sounds, non tender, soft Extremities: non-tender, no pedal edema Neurologic/Psychiatric: no motor/sensory deficits, oriented x 3 Skin: warm/dry (Nisha Boyce PA-C) Laboratory Results 06/07/16 06:27 Red Blood Count 3.97, Mean Corpuscular Volume 89.7, Mean Corpuscular Hemoglobin 29.5, Mean Corpuscular Hemoglobin Concent 32.9, Mean Platelet Volume 10.1, Neutrophils (%) (Auto) 48.1, Lymphocytes (%) (Auto) 40.8, Monocytes (%) (Auto) 9.6, Eosinophils (%) (Auto) 1.1, Basophils (%) (Auto) 0.3, Neutrophils # (Auto) 3.55, Lymphocytes # (Auto) 3.01, Monocytes # (Auto) 0.71, Eosinophils # (Auto) 0.08, Basophils # (Auto) 0.02 06/07/16 06:27 Test 06/06/16 17:10 06/06/16 19:00 06/07/16 06:27 Prothrombin Time 10.5 SECONDS (9.0-12.0) Prothromb Time International Ratio 1.0 (0.9-1.1) Activated Partial Thromboplast Time 25.2 SECONDS (21.0-31.0) Partial Thromboplastin Ratio 1.0 Magnesium Level 2.2 mg/dl (1.8-2.4) Direct Bilirubin 0.1 mg/dl (0-0.2) Total Creatine Kinase 93 U/L (26-192) Creatine Kinase MB 0.6 ng/ml (0.5-3.6) Creatine Kinase MB Ratio 0.6 (0-3.0) Troponin I < 0.015 ng/ml (0-0.045) Lipase 112 U/L (73-393) Hepatitis C Antibody Screen NEG (NEG) Urine Color YELLOW Urine Appearance CLOUDY (CLEAR) Urine pH 5.0 (4.5-7.5) Urine Specific [place] 1.025 (1.000-1.030) Urine Protein NEG (NEG) Urine Glucose (UA) NEG (NEG) Urine Ketones 2+ (NEG) Urine Occult Blood NEG (NEG) Urine Nitrite NEG (NEG) Urine Bilirubin NEG (NEG) Urine Urobilinogen NEG (NEG) Urine Leukocyte Esterase MODERATE (NEG) Urine WBC (Auto) 10-30 /hpf (0-5) Urine RBC (Auto) 0-4 /hpf (0-4) Urine Hyaline Casts (Auto) 1-5 /lpf (0-5) Urine Epithelial Cells (Auto) >30 /lpf (0-5) Urine Bacteria (Auto) 1+ (NEG) White Blood Count 7.38 K/uL (4.8-10.8) Red Blood Count 3.97 M/uL (4.2-5.4) Hemoglobin 11.7 g/dL (12.0-16.0) Hematocrit 35.6 % (37-47) Mean Corpuscular Volume 89.7 fL (80-100) Mean Corpuscular Hemoglobin 29.5 pg (25-34) Mean Corpuscular Hemoglobin Concent 32.9 g/dl (32-36) Platelet Count 227 K/uL (130-400) Mean Platelet Volume 10.1 fL (7.4-10.4) Neutrophils (%) (Auto) 48.1 % Lymphocytes (%) (Auto) 40.8 % Monocytes (%) (Auto) 9.6 % Eosinophils (%) (Auto) 1.1 % Basophils (%) (Auto) 0.3 % Neutrophils # (Auto) 3.55 K/uL (1.4-6.5) Lymphocytes # (Auto) 3.01 K/uL (1.2-3.4) Monocytes # (Auto) 0.71 K/uL (0.11-0.59) Eosinophils # (Auto) 0.08 K/uL (0-0.5) Basophils # (Auto) 0.02 K/uL (0-0.2) RDW Standard Deviation 44.4 fL (36.4-46.3) RDW Coefficient of Variation 13.6 % (11.5-14.5) Immature Granulocyte % (Auto) 0.1 % Immature Granulocyte # (Auto) 0.01 K/uL (0.00-0.02) Anion Gap 8.0 mmol/L (3-11) Est Creatinine Clear Calc Drug Dose 80.8 ml/min Estimated GFR () 86.4 Estimated GFR (Non- 74.6 BUN/Creatinine Ratio 13.3 (10-20) Calcium Level 8.6 mg/dl (8.5-10.1) Total Bilirubin 0.5 mg/dl (0.2-1) Aspartate Amino Transf (AST/SGOT) 20 U/L (15-37) Alanine Aminotransferase (ALT/SGPT) 23 U/L (12-78) Alkaline Phosphatase 66 U/L (45-117) Total Protein 5.8 gm/dl (6.4-8.2) Albumin 3.0 gm/dl (3.4-5.0) Globulin 2.8 gm/dl (2.5-4.0) Albumin/Globulin Ratio 1.1 (0.9-2) Thyroid Stimulating Hormone (TSH) 0.078 uIu/ml (0.300-4.500) Free Thyroxine 1.20 ng/dl (0.80-1.60) Last 24 Hours Test 06/06/16 17:10 06/06/16 19:00 06/07/16 06:27 White Blood Count 7.88 K/uL 7.38 K/uL Red Blood Count 4.46 M/uL 3.97 M/uL Hemoglobin 13.8 g/dL 11.7 g/dL Hematocrit 39.2 % 35.6 % Mean Corpuscular Volume 87.9 fL 89.7 fL Mean Corpuscular Hemoglobin 30.9 pg 29.5 pg Mean Corpuscular Hemoglobin Concent 35.2 g/dl 32.9 g/dl Platelet Count 284 K/uL 227 K/uL Mean Platelet Volume 10.5 fL 10.1 fL Neutrophils (%) (Auto) 65.9 % 48.1 % Lymphocytes (%) (Auto) 25.4 % 40.8 % Monocytes (%) (Auto) 7.5 % 9.6 % Eosinophils (%) (Auto) 0.6 % 1.1 % Basophils (%) (Auto) 0.3 % 0.3 % Neutrophils # (Auto) 5.20 K/uL 3.55 K/uL Lymphocytes # (Auto) 2.00 K/uL 3.01 K/uL Monocytes # (Auto) 0.59 K/uL 0.71 K/uL Eosinophils # (Auto) 0.05 K/uL 0.08 K/uL Basophils # (Auto) 0.02 K/uL 0.02 K/uL RDW Standard Deviation 42.7 fL 44.4 fL RDW Coefficient of Variation 13.4 % 13.6 % Immature Granulocyte % (Auto) 0.3 % 0.1 % Immature Granulocyte # (Auto) 0.02 K/uL 0.01 K/uL Prothrombin Time 10.5 SECONDS Prothromb Time International Ratio 1.0 Activated Partial Thromboplast Time 25.2 SECONDS Partial Thromboplastin Ratio 1.0 Sodium Level 143 mmol/L 143 mmol/L Potassium Level 3.9 mmol/L 3.8 mmol/L Chloride Level 109 mmol/L 110 mmol/L Carbon Dioxide Level 23 mmol/L 25 mmol/L Anion Gap 11.0 mmol/L 8.0 mmol/L Blood Urea Nitrogen 17 mg/dl 11 mg/dl Creatinine 0.90 mg/dl 0.82 mg/dl Est Creatinine Clear Calc Drug Dose 73.6 ml/min 80.8 ml/min Estimated GFR () 77.2 86.4 Estimated GFR (Non- 66.6 74.6 BUN/Creatinine Ratio 19.1 13.3 Random Glucose 106 mg/dl 83 mg/dl Calcium Level 10.0 mg/dl 8.6 mg/dl Magnesium Level 2.2 mg/dl Total Bilirubin 0.3 mg/dl 0.5 mg/dl Direct Bilirubin 0.1 mg/dl Aspartate Amino Transf (AST/SGOT) 18 U/L 20 U/L Alanine Aminotransferase (ALT/SGPT) 21 U/L 23 U/L Alkaline Phosphatase 80 U/L 66 U/L Total Creatine Kinase 93 U/L Creatine Kinase MB 0.6 ng/ml Creatine Kinase MB Ratio 0.6 Troponin I < 0.015 ng/ml Total Protein 7.5 gm/dl 5.8 gm/dl Albumin 4.0 gm/dl 3.0 gm/dl Lipase 112 U/L Hepatitis C Antibody Screen NEG Urine Color YELLOW Urine Appearance CLOUDY Urine pH 5.0 Urine Specific [place] 1.025 Urine Protein NEG Urine Glucose (UA) NEG Urine Ketones 2+ Urine Occult Blood NEG Urine Nitrite NEG Urine Bilirubin NEG Urine Urobilinogen NEG Urine Leukocyte Esterase MODERATE Urine WBC (Auto) 10-30 /hpf Urine RBC (Auto) 0-4 /hpf Urine Hyaline Casts (Auto) 1-5 /lpf Urine Epithelial Cells (Auto) >30 /lpf Urine Bacteria (Auto) 1+ Globulin 2.8 gm/dl Albumin/Globulin Ratio 1.1 Thyroid Stimulating Hormone (TSH) 0.078 uIu/ml Free Thyroxine 1.20 ng/dl (Nisha Boyce PA-C) Assessment and Plan 65-year-old female presents emergency department with nausea, vomiting and abdominal pain. Large paraesophageal hernia noted per CT Nausea, vomiting, abdominal pain-symptoms are currently better -Continue NPO -GI consult appreciated-EGD today -Continue Protonix 40 mg IV daily -Continue Carafate 1 g QID Large paraesophageal hernia -Awaiting neurosurgery's input Pancreatic head lesion -Follow up as an outpatient for an EUS Thyroid nodule/Low TSH-? Hyperthyroidism, hashimotos, etc...-asymptomatic -Follow up as an outpatient DVT prophylaxis -Heparin subQ -TEDS, SCDs CODE STATUS -LEVEL I FULL CODE (Nisha Boyce, PA-C) I agree with PA assessment and plan and have seen and examined pt myself Agree with ROS and PE findings Agreeable to EGD today Will f/u with surgery on friday to discuss options regarding hernia repair (Bruno Gardner, D.O.)
[2016-06-07] MEDS ORDERED: PROPOFOL IV EMULSION 10 MG/ML 20 ML VIAL IV ONE (11:53)
[2016-06-07] MEDS ORDERED: LIDOCAINE HCL 2% 2 ML VIAL (20MG/ML) ONE (11:53)
--- NOTE | 2016-06-07 12:28 | GI REPORT ---
Procedure Date: 06/07/2016 12:03 PM Procedure: Upper GI endoscopy Indications: Epigastric abdominal pain, Abnormal CT of the GI tract Medicines: Monitored Anesthesia Care Complications: No immediate complications. Estimated Blood Loss: Estimated blood loss: none. Procedure: Pre-Anesthesia Assessment: - Prior to the procedure, a History and Physical was performed, and patient medications and allergies were reviewed. The patient's tolerance of previous anesthesia was also reviewed. The risks and benefits of the procedure and the sedation options and risks were discussed with the patient. All questions were answered, and informed consent was obtained. Prior Anticoagulants: The patient has taken no previous anticoagulant or antiplatelet agents. ASA Grade Assessment: II - A patient with mild systemic disease. After reviewing the risks and benefits, the patient was deemed in satisfactory condition to undergo the procedure. After obtaining informed consent, the endoscope was passed under direct vision. Throughout the procedure, the patient's blood pressure, pulse, and oxygen saturations were monitored continuously. The scope was introduced through the mouth, and advanced to the second part of duodenum. The upper GI endoscopy was accomplished without difficulty. The patient tolerated the procedure well. Findings: The examined esophagus was normal. A large paraesophageal hernia was found. Localized mild inflammation characterized by erythema was found in the gastric antrum. Biopsies were taken with a cold forceps for histology. The examined duodenum was normal. Impression: - Normal esophagus. - Gastritis. Biopsied. - Normal examined duodenum. Recommendation: - [facility]. - Advance diet as tolerated. - Continue present medications. - Await pathology results. - Refer to a surgeon at appointment to be scheduled. Tremaine Lincoln, DO 06/07/2016 12:28:01 PM This report has been signed electronically. Note Initiated On: 06/07/2016 12:03 PM
--- NOTE | 2016-06-07 13:15 | Anesthesiology Progress Note ---
Anesthesia Post Op Note Date & Time Jun 07, 2016 at 13:16 Vital Signs Pain Intensity: 0.0 Vital Signs Past 12 Hours Date Time Temp Pulse Resp B/P Pulse Ox O2 Delivery O2 Flow Rate FiO2 06/07/16 13:02 62 18 133/76 97 Room Air Mask 06/07/16 12:45 61 18 113/67 96 Room Air Mask 06/07/16 12:30 62 18 102/63 95 Mask 5 06/07/16 11:35 37.1 62 18 120/75 94 Room Air 06/07/16 10:39 36.8 65 18 96/63 93 Room Air 06/07/16 07:20 Room Air 06/07/16 07:00 36.8 65 18 96/63 93 Room Air Notes Mental Status: alert / awake / arousable, participated in evaluation Pt Amnestic to Procedure: Yes Nausea / Vomiting: adequately controlled Pain: adequately controlled Airway Patency, RR, SpO2: stable & adequate BP & HR: stable & adequate Hydration State: stable & adequate Anesthetic Complications: no major complications apparent
[2016-06-07 13:20] VITALS: BP 119/75; PULSE 63; TEMP 36.6; O2SAT 95
[2016-06-07] MEDS: SUCRALFATE 1 GM/10 ML UDC PO SCH ×2 (13:26→18:06)
--- NOTE | 2016-06-07 13:58 | Surgery Consultation ---
Consultation Date of Consultation: Jun 07, 2016. Attending Physician: Bruno Gradner D.O. Reason for Consultation: large paraesophageal hernia History of Present Illness 65 y/o female with about a 2 year hx of epigastric pain, pain/nausea after eating....symptoms have been progressing. was in an ER in [place] over the past year for same symptoms. pain last night severe. does have nausea/emesis at times associated with it. denies SOB. occ GERD. lost about 10-15 lbs over the past 1 year b/c of food avoidance. Past Medical/Surgical History Medical Problems: (1) Epigastric abdominal pain Status: Acute (2) Hiatal hernia Status: Acute (3) Intractable nausea and vomiting Status: Acute Family History Patient reports no known family medical history. Social History Smoking Status: Never Smoker Marital Status: Occupation Status: unemployed Allergies Coded Allergies: No Known Allergies (Unverified , 06/06/16) Home Medications Scheduled Cyanocobalamin (Vitamin B-12), 100 MCG PO DAILY Glucosamine-Chondroitin (Glucosamine/Chondroitin), 1 TAB PO DAILY Multivitamin (Multivitamin), 1 TAB PO DAILY Pantoprazole (Protonix), 40 MG PO 2XWK Current Inpatient Medications Current Inpatient Medications Medications (Trade) Dose Ordered Sig/Jluis Route Start Time Stop Time Status Last Admin Dose Admin Ioversol (Optiray 320) 111 ml UD PRN IV 06/06/16 18:45 06/10/16 18:44 Acetaminophen (Tylenol Tab) 650 mg Q4H PRN PO 06/06/16 22:45 07/06/16 22:44 Al Hydrox/Mg Hydrox/Simethicone (Maalox Max Susp) 15 ml Q4H PRN PO 06/06/16 22:45 07/06/16 22:44 Magnesium Hydroxide (Milk Of Magnesia Susp) 30 ml Q6H PRN PO 06/06/16 22:45 07/06/16 22:44 Ondansetron HCl (Zofran Inj) 4 mg Q6H PRN IV 06/06/16 22:45 07/06/16 22:44 Heparin Sodium (Porcine) 5000 unit 5,000 unit Q12H SQ 06/06/16 22:45 07/06/16 22:44 06/07/16 10:24 5,000 UNIT Potassium Chloride/Sodium Chloride (05/13 Nss + 20meq KCl 1000ml) 1,000 ml @ 125 mls/hr Q8H IV 06/07/16 00:15 07/07/16 00:14 06/07/16 08:25 125 MLS/HR Polyethylene (Miralax Powder Packet) 17 gm DAILY PRN PO 06/06/16 22:45 07/06/16 22:44 Miscellaneous 1 ea 1 ea PRN PRN N/A 06/06/16 23:00 06/06/17 22:59 Pantoprazole Sodium 40 mg/ Dextrose 100 ml @ 20 mls/hr Q5H IV 06/07/16 04:00 07/07/16 03:59 06/07/16 09:15 20 MLS/HR Acetaminophen/ Empty Bag (Ofirmev IV/ Empty Iv Bag 100ml) 65 ml @ 260 mls/hr Q6H PRN IV 06/07/16 08:45 07/07/16 08:44 06/07/16 09:54 260 MLS/HR Sucralfate (Carafate Susp) 1 gm QID PO 06/07/16 13:00 07/07/16 12:59 06/07/16 13:26 1 GM Review of Systems Abdomen: + nausea, + pain, + vomiting Physical Exam Date Time Temp Pulse Resp B/P Pulse Ox O2 Delivery O2 Flow Rate FiO2 06/07/16 13:20 36.6 63 18 119/75 95 Room Air 06/07/16 13:02 62 18 133/76 97 Room Air Mask 06/07/16 12:45 61 18 113/67 96 Room Air Mask 06/07/16 12:30 62 18 102/63 95 Mask 5 06/07/16 11:35 37.1 62 18 120/75 94 Room Air 06/07/16 10:39 36.8 65 18 96/63 93 Room Air 06/07/16 07:20 Room Air 06/07/16 07:00 36.8 65 18 96/63 93 Room Air 06/07/16 00:00 36.7 66 18 115/69 93 Room Air 06/06/16 23:38 63 19 110/73 96 Nasal Cannula 2.0 06/06/16 21:45 80 23 124/80 95 Room Air 06/06/16 21:38 91 06/06/16 19:55 Nasal Cannula 2.0 06/06/16 19:53 86 14 124/90 90 06/06/16 18:52 80 28 142/86 95 Room Air 06/06/16 17:28 75 06/06/16 16:44 36.7 77 24 135/94 94 Room Air General Appearance: no apparent distress Head: normocephalic, atraumatic Eyes: normal inspection, EOMI ENT: hearing grossly normal Neck: supple, no adenopathy Respiratory/Chest: no respiratory distress, no accessory muscle use Cardiovascular: regular rate, rhythm Abdomen/GI: non tender, soft Extremities/Musculoskelatal: normal inspection, normal range of motion Neurologic/Psych: alert, normal mood/affect, oriented x 3 Skin: normal color, warm/dry Laboratory Results Last 24 Hours Test 06/06/16 17:10 06/06/16 19:00 06/07/16 06:27 White Blood Count 7.88 K/uL 7.38 K/uL Red Blood Count 4.46 M/uL 3.97 M/uL Hemoglobin 13.8 g/dL 11.7 g/dL Hematocrit 39.2 % 35.6 % Mean Corpuscular Volume 87.9 fL 89.7 fL Mean Corpuscular Hemoglobin 30.9 pg 29.5 pg Mean Corpuscular Hemoglobin Concent 35.2 g/dl 32.9 g/dl Platelet Count 284 K/uL 227 K/uL Mean Platelet Volume 10.5 fL 10.1 fL Neutrophils (%) (Auto) 65.9 % 48.1 % Lymphocytes (%) (Auto) 25.4 % 40.8 % Monocytes (%) (Auto) 7.5 % 9.6 % Eosinophils (%) (Auto) 0.6 % 1.1 % Basophils (%) (Auto) 0.3 % 0.3 % Neutrophils # (Auto) 5.20 K/uL 3.55 K/uL Lymphocytes # (Auto) 2.00 K/uL 3.01 K/uL Monocytes # (Auto) 0.59 K/uL 0.71 K/uL Eosinophils # (Auto) 0.05 K/uL 0.08 K/uL Basophils # (Auto) 0.02 K/uL 0.02 K/uL RDW Standard Deviation 42.7 fL 44.4 fL RDW Coefficient of Variation 13.4 % 13.6 % Immature Granulocyte % (Auto) 0.3 % 0.1 % Immature Granulocyte # (Auto) 0.02 K/uL 0.01 K/uL Prothrombin Time 10.5 SECONDS Prothromb Time International Ratio 1.0 Activated Partial Thromboplast Time 25.2 SECONDS Partial Thromboplastin Ratio 1.0 Sodium Level 143 mmol/L 143 mmol/L Potassium Level 3.9 mmol/L 3.8 mmol/L Chloride Level 109 mmol/L 110 mmol/L Carbon Dioxide Level 23 mmol/L 25 mmol/L Anion Gap 11.0 mmol/L 8.0 mmol/L Blood Urea Nitrogen 17 mg/dl 11 mg/dl Creatinine 0.90 mg/dl 0.82 mg/dl Est Creatinine Clear Calc Drug Dose 73.6 ml/min 80.8 ml/min Estimated GFR () 77.2 86.4 Estimated GFR (Non- 66.6 74.6 BUN/Creatinine Ratio 19.1 13.3 Random Glucose 106 mg/dl 83 mg/dl Calcium Level 10.0 mg/dl 8.6 mg/dl Magnesium Level 2.2 mg/dl Total Bilirubin 0.3 mg/dl 0.5 mg/dl Direct Bilirubin 0.1 mg/dl Aspartate Amino Transf (AST/SGOT) 18 U/L 20 U/L Alanine Aminotransferase (ALT/SGPT) 21 U/L 23 U/L Alkaline Phosphatase 80 U/L 66 U/L Total Creatine Kinase 93 U/L Creatine Kinase MB 0.6 ng/ml Creatine Kinase MB Ratio 0.6 Troponin I < 0.015 ng/ml Total Protein 7.5 gm/dl 5.8 gm/dl Albumin 4.0 gm/dl 3.0 gm/dl Lipase 112 U/L Hepatitis C Antibody Screen NEG Urine Color YELLOW Urine Appearance CLOUDY Urine pH 5.0 Urine Specific [place] 1.025 Urine Protein NEG Urine Glucose (UA) NEG Urine Ketones 2+ Urine Occult Blood NEG Urine Nitrite NEG Urine Bilirubin NEG Urine Urobilinogen NEG Urine Leukocyte Esterase MODERATE Urine WBC (Auto) 10-30 /hpf Urine RBC (Auto) 0-4 /hpf Urine Hyaline Casts (Auto) 1-5 /lpf Urine Epithelial Cells (Auto) >30 /lpf Urine Bacteria (Auto) 1+ Globulin 2.8 gm/dl Albumin/Globulin Ratio 1.1 Thyroid Stimulating Hormone (TSH) 0.078 uIu/ml Free Thyroxine 1.20 ng/dl Assessment & Plan 1. large /symptomatic paraesophageal hernia d/w Dr. Lincoln. he will perform EGD today to eval mucosa/rule out PUD etc.... will need surgical repair. discussed different options including thoracic vs abdominal approach and pros/cons of each discussed risks of surgey ( bleeding/infection/dvt/pe/mi/injury to other organs such as stomach/esophagus/bowel etc....), discussed she may have some dysphagia afterward. pt currently stable /asymptomatic. no evidence of incarceration/ strangulation agree with egd. after egd can do softs/full liquid diet. ok for d/c. will see me in the office friday to discuss elective repair. will plan repair within the next 1-2 weeks. pt in agreement. questions answered.
[2016-06-07 15:02] VITALS: BP 105/66; PULSE 59; TEMP 36.9; O2SAT 93
[2016-06-07 23:25] VITALS: BP 128/67; PULSE 74; TEMP 37.7; O2SAT 93
[2016-06-08] MEDS: SUCRALFATE 1 GM/10 ML UDC PO SCH ×2 (00:05→08:30)
[2016-06-08] MEDS: HEPARIN SOD 5000 UNIT/0.5 ML CARP SQ SCH (00:06)
[2016-06-08] MEDS: SODIUM CHLOR 0.45% + 20MEQ KCL 1,000 ML IV SCH ×2 (00:07→07:55)
[2016-06-08] MEDS: PANTOprazole INJ 40 MG in DEXTROSE 5% 100ML IV SCH ×2 (00:08→04:52)
[2016-06-08 07:06] LABS: BUN/CREATININE RATIO 7.4 (10-20); CALCIUM 9.1 mg/dl (8.5-10.1); CREATININE 0.8 mg/dl (0.60-1.20); POTASSIUM 4.2 mmol/L (3.5-5.1)
[2016-06-08 07:45] VITALS: BP 132/94; PULSE 66; TEMP 37; O2SAT 93
[2016-06-08 09:29] VITALS: O2SAT 93
--- NOTE | 2016-06-08 10:01 | Discharge Instructions ---
Discharge Instructions Admission Reason for Admission: Hiatal Hernia, Intractable Nausea And Vomiting Discharge Discharge Diagnosis / Problem: Paraesophageal hernia Discharge Goals Goal(s): Decrease discomfort, Improve function, Increase independence, Improve disease control, Learn about illness, Diagnostic testing, Therapeutic intervention Activity Recommendations Activity Limitations: resume your previous activity Shower/Bathe: no limitations Driving or Machine Use: no limitations . Instructions / Follow-Up Instructions / Follow-Up Patient to be discharged home Please continue taking protonix as directed Will follow up with surgeon Dr Cullen on friday06/10/16 If worsening abdominal pain, fevers, nausea, vomiting or diarrhea please report to ER Current Hospital Diet Patient's current hospital diet: Full Liquid Diet Discharge Diet Recommended Diet: Full Liquid Diet Pending Studies Studies pending at discharge: no Medical Emergencies . Who to Call and When: Medical Emergencies: If at any time you feel your situation is an emergency, please call 911 immediately. . Non-Emergent Contact Non-Emergency issues call your: Primary Care Provider Call Non-Emergent contact if: you have a fever, your pain is worsening . . "Provider Documentation" section prepared by Bruno Gardner. VTE Core Measure Inpt VTE Proph given/why not?: Unfractionated heparin SQ
[2016-06-08 10:11] VITALS: BP 132/94; PULSE 66; TEMP 37; O2SAT 93
--- NOTE | 2016-06-08 15:03 | Discharge Summary ---
Discharge Summary Admission Date: Jun 06, 2016 at 22:40 Discharge Date: Jun 08, 2016 Discharge Disposition: Home Principal Diagnosis: paraesophageal hernia Immunizations: Have You Had Influenza Vaccine: Yes History of Tetanus Vaccine?: Yes History of Pneumococcal: No History of Hepatitis B Vaccine: No Consultations: GI General Surgery Medication Reconciliation Continued Medications: Cyanocobalamin (Vitamin B-12) 100 Mcg Tab 100 MCG PO DAILY Glucosamine-Chondroitin (Glucosamine/Chondroitin) 750 Mg/600 Mg Cap 1 TAB PO DAILY Multivitamin (Multivitamin) Tab 1 TAB PO DAILY, 0 Refills Pantoprazole (Protonix) 40 Mg Tab 40 MG PO 2XWK, #30 TAB Discharge Exam Review of Systems: Constitutional: No chills, No fever Respiratory: No cough, No sputum Cardiovascular: No chest pain, No orthopnea Abdomen: No diarrhea, No nausea, No pain, No vomiting Musculoskeletal: No joint pain, No muscle pain Genitourinary - Female: No dysuria, No urinary frequency, No urinary urgency Neurologic: No memory loss, No weakness Physical Exam: General Appearance: WD/WN, no apparent distress Neck: supple, no adenopathy Respiratory/Chest: chest non-tender, lungs clear, normal breath sounds Cardiovascular: regular rate, rhythm, no edema, no gallop Abdomen / GI: normal bowel sounds, soft Neurologic/Psychiatric: alert, oriented x 3 Hospital Course 65-year-old female presents emergency department with nausea, vomiting and abdominal pain. Large paraesophageal hernia noted per CT Nausea, vomiting, abdominal pain-symptoms are currently better -GI consult appreciated-EGD 06/07 gastritis, paraesophageal hernia -Continue Protonix 40 mg IV daily -Continue Carafate 1 g QID Large paraesophageal hernia -Will f/u with general surgery on friday06/10/16 for likely repair Pancreatic head lesion -Follow up as an outpatient for an EUS Thyroid nodule/Low TSH-? Hyperthyroidism, hashimotos, etc...-asymptomatic -Follow up as an outpatient DVT prophylaxis -Heparin subQ -TEDS, SCDs CODE STATUS -LEVEL I FULL CODE Total Time Spent: Greater than 30 minutes This includes examination of the patient, discharge planning, medication reconciliation, and communication with other providers. Discharge Instructions Please refer to the electronic Patient Visit Report (Discharge Instructions) for additional information. Additional Copies To Swetha Aviles M.D.
[2016-06-11] MEDS ORDERED: SUCR1TAB29 PO (11:55)
[2016-06-14] MEDS ORDERED: HYDR-5688 PO (12:38)
[2016-06-14] MEDS ORDERED: ONDA4TAB10 SL (12:38)
== END 2016-06-08 10:35 | disposition home or self-care (01) ==
LOC: ENRESERVDT → ENRESERVTM → C.EDB 16:41 → C.MSW 22:40
PROVIDERS: ADMIT Hospitalist; ATTEND Hospitalist
DX: K44.9 Diaphragmatic hernia without obstruction or gangrene (principal); R10.13 Epigastric pain; R11.2 Nausea with vomiting, unspecified; E04.1 Nontoxic single thyroid nodule; K86.9 Disease of pancreas, unspecified; E05.90 Thyrotoxicosis, unspecified without thyrotoxic crisis or storm; Z90.49 Acquired absence of other specified parts of digestive tract

== ENCOUNTER 2016-06-14 09:48 | Observation (INO) | payer OTHER ==
[~2016-06-14] VITALS: Ht 172.7 cm; Wt 90.9 kg
[~2016-06-14 09:48] MED LIST changes: -CALCIUM PO; +CEFAZOLIN 2000 MG/60 ML D5W IV SCH; +LACTATED RINGER'S 1000ML 1,000 ML IV SCH; -OXYC-57 PO; +PANT40TA PO; +SUCR1TAB29 PO; -VITAMIN D PO; +VTMB12100 PO
[2016-06-14 10:26] VITALS: BP 127/68; PULSE 58; TEMP 36.8; O2SAT 95; Ht 172.7 cm; Wt 90.9 kg
[2016-06-14] MEDS ORDERED: HEPARIN SOD 5000 UNIT/0.5 ML CARP ONE (11:30)
--- NOTE | 2016-06-14 11:35 | History & Physical Bridge Note ---
H&P Re-Evaluation Bridge Note: I have examined the patient, reviewed the History & Physical and in the interval since the performance of the History & Physical I have noted the following changes of clinical significance: No changes noted
[2016-06-14] MEDS ORDERED: MoRPHine SULFATE 2 MG/ML CARP ONE ×3 (11:46→14:01)
[2016-06-14] MEDS ORDERED: MIDAZOLAM HCL 1 MG/ML 2ML VIAL ONE (12:08)
[2016-06-14] MEDS ORDERED: FENTANYL CITRATE INJ 50 MCG/1 ML 2 ML VIAL ONE (12:08)
[2016-06-14] MEDS ORDERED: LIDOCAINE HCL 2% 2 ML VIAL (20MG/ML) ONE (12:15)
[2016-06-14] MEDS ORDERED: NEOSTIGMINE METHYLSULFATE 5 MG/5 ML SYR ONE (12:15)
[2016-06-14] MEDS ORDERED: SUCCINYLCHOLINE CHLORIDE 20 MG/ML 10 ML VIAL IV ONE (12:15)
[2016-06-14] MEDS ORDERED: PROPOFOL IV EMULSION 10 MG/ML 20 ML VIAL IV ONE (12:15)
[2016-06-14] MEDS ORDERED: ONDANSETRON INJ 2 MG/ML 2 ML VIAL ONE (12:15)
[2016-06-14] MEDS ORDERED: ROCURONIUM BROMIDE 10 MG/ML 5 ML VIAL ONE ×2 (12:15→13:47)
[2016-06-14] MEDS ORDERED: DEXAMETHASONE SOD INJ 4 MG/ML VIAL ONE (12:15)
[2016-06-14] MEDS ORDERED: GLYCOPYRROLATE INJ 0.2 MG/ML VIAL ONE (12:15)
[2016-06-14] MEDS ORDERED: LACTATED RINGER'S 1000ML 1,000 ML IV PRN (12:34)
[2016-06-14] MEDS ORDERED: HYDR-5688 PO (12:38)
[2016-06-14] MEDS ORDERED: ONDA4TAB10 SL (12:38)
[2016-06-14] MEDS ORDERED: FENTANYL CITRATE INJ 50 MCG/1 ML 2 ML VIAL IV PRN (12:45)
[2016-06-14] MEDS ORDERED: ONDANSETRON INJ 2 MG/ML 2 ML VIAL IV PRN ×2 (12:45→14:45)
[2016-06-14] MEDS ORDERED: DiphenhydrAMINE HCL 50 MG/ML VIAL IV PRN (12:45)
[2016-06-14] MEDS ORDERED: MoRPHine SULFATE 10 MG/ML CARP/VIAL IV PRN (12:45)
[2016-06-14] MEDS ORDERED: PHENYLEPHRINE 100MCG/ML 5ML SYR ONE (13:11)
[2016-06-14] MEDS ORDERED: VOLUVEN IN NSS ONE (13:13)
[2016-06-14] MEDS ORDERED: BUPIVACAINE/EPINEPHRINE 0.5% MPF 1:200,000 30 ML VIAL INJ ONE (14:30)
--- NOTE | 2016-06-14 14:39 | [facility] Operative Report ---
Operative Report Operative Date Jun 14, 2016. Pre-Operative Diagnosis Large hiatal hernia. Post-Operative Diagnosis large paraesophageal hiatal hernia Procedure(s) Performed laparoscopic repair of paraesophageal hernia with gastropexy Surgeon Dr. Cullen Cell Tender Helper Surgeon(s) Dandre Reilly, PAC Estimated Blood Loss 25 ml Findings large incarcerated hiatal hernia ;incarcerated stomach Specimens None. Disposition Recovery Room / PACU I attest to the content of the Intraoperative Record and any orders documented therein. Any exceptions are noted below.
[2016-06-14] MEDS ORDERED: HYDROCODONE/ACETAMOPHEN 5/325MG TAB PO PRN (14:45)
[2016-06-14] MEDS ORDERED: MoRPHine SULFATE 2 MG/ML CARP IV PRN (14:45)
--- NOTE | 2016-06-14 15:03 | OPERATIVE REPORT ---
DATE OF OPERATION: 06/14/2016 PREOPERATIVE DIAGNOSIS: Symptomatic large incarcerated paraesophageal hernia. POSTOPERATIVE DIAGNOSIS: Same. PROCEDURES: Laparoscopic repair of large paraesophageal hernia with gastropexy. SURGEON: Galo Cullen DO PARALEGAL SUPERVISOR: Scott Reilly PA-C ESTIMATED BLOOD LOSS: Approximately 25 mL. COMPLICATIONS: No immediate. ANESTHESIA: General. DISPOSITION: The patient tolerated the procedure well. DESCRIPTION OF PROCEDURE: After informed consent was obtained, the patient was taken to the operating suite and placed in supine position. After successful intubation, the abdomen was sterilely prepped and draped in usual fashion. A supraumbilical incision made with 10 blade scalpel and carried down through the soft tissue using electrocautery. Anterior rectus fascia was opened using electrocautery and two #0 Vicryl stay sutures were placed. Peritoneum was entered using blunt finger penetration. A finger sweep was performed. A 12 mm Reed trocar was placed and the abdomen was insufflated 18 mmHg. Laparoscope was inserted and the abdomen examined 360 degrees. A subxiphoid 12 mm port, a right upper quadrant 12 mm port, a right flank 5 mm port and the left flank 5 mm port were all placed under direct vision. The liver retractor was used throughout the case to help exposure. The patient was placed in steep reverse Trendelenburg position as well. As soon as we lifted up the left lobe of the liver, we noted a badly incarcerated large paraesophageal hernia. Probably two-thirds of the stomach was incarcerated in the chest cavity. It was mobile at least the bottom two-thirds of the stomach were mobile enough that we could easily reduce them out of the chest cavity. We then began by taking down the hernia sac which was quite large and chronic in nature. We used a Harmonic scalpel. We also had anesthesia pass a 40-Belarusian bougie into the distal stomach to help us identify the esophagus. As we took down the hernia sac, we kept traction, counter traction and continue to take it down anteriorly as well as posteriorly. Eventually, we were able to get the entire hernia sac divided, which allowed us to completely reduce the entire stomach into the abdominal cavity. I do believe as seen on CAT scan a portion of the pancreas was also incarcerated as well as a large amount of the lesser curvature blood supply and some of the omentum. After we completely reduced all of this, I left a rather large defect. We did suction and irrigate the chest cavity and then we primarily closed the defect using 0 silk with the EndoStitch device. We used simple interrupted stitches to completely close the defect. We then also used 0 silk to perform a gastropexy bypassing the fundus of the stomach to the left crura of the diaphragm. At the end of procedure, the stomach laid tension free into the abdominal cavity. There was adequate hemostasis. A quick look around the abdomen showed no other abnormalities. We removed the liver retractor as well as the other trocars. We desufflated the abdomen. We closed the fascia using 0 Vicryl in a [id number] fashion. We then irrigated the wounds and closed them using 4-0 Monocryl. Marcaine was injected around them for postoperative analgesia and skin glue used as dressing. The patient was awakened, extubated, and transferred to recovery in stable condition. I attest to the content of the Intraoperative Record and any orders documented therein. Any exceptio ns are noted below.
--- NOTE | 2016-06-14 15:15 | Anesthesiology Progress Note ---
Anesthesia Post Op Note Date & Time Jun 14, 2016 at 15:15 Vital Signs Pain Intensity: 0 Vital Signs Past 12 Hours Date Time Temp Pulse Resp B/P Pulse Ox O2 Delivery O2 Flow Rate FiO2 06/14/16 15:10 66 18 119/67 99 Nasal Cannula 3 06/14/16 15:00 55 20 117/67 97 Nasal Cannula 3 06/14/16 14:50 57 20 120/60 100 Mask 10 06/14/16 14:40 36.5 61 20 128/78 100 Mask 10 06/14/16 10:26 36.8 58 20 127/68 95 Room Air Notes Mental Status: alert / awake / arousable, participated in evaluation Pt Amnestic to Procedure: Yes Nausea / Vomiting: adequately controlled Pain: adequately controlled Airway Patency, RR, SpO2: stable & adequate BP & HR: stable & adequate Hydration State: stable & adequate Anesthetic Complications: no major complications apparent
[2016-06-14] MEDS ORDERED: IV FLUIDS COMPLETED PRN (16:00)
[2016-06-14 16:04] VITALS: BP 114/71; PULSE 60; TEMP 36.9; O2SAT 95
[2016-06-14 16:32] VITALS: BP 119/73; PULSE 53; TEMP 36.8; O2SAT 96
[2016-06-14 17:04] VITALS: BP 124/68; PULSE 55; TEMP 36.9; O2SAT 93
[2016-06-14] MEDS: HYDROCODONE/ACETAMOPHEN 5/325MG TAB PO PRN ×2 (17:32→23:31)
[2016-06-14 18:05] VITALS: BP 128/77; PULSE 60
[2016-06-14] MEDS: SUCRALFATE 1 GM TAB PO SCH ×2 (18:29→21:53)
[2016-06-14] MEDS: LACTATED RINGER'S 1000ML 1,000 ML IV SCH ×2 (18:30→22:21)
[2016-06-14 23:58] VITALS: BP 107/66; PULSE 43; TEMP 36.8; O2SAT 91
[2016-06-15 04:09] VITALS: BP 93/58; PULSE 53; TEMP 36.8; O2SAT 90
[2016-06-15] MEDS: SUCRALFATE 1 GM TAB PO SCH (07:10)
[2016-06-15] MEDS: HYDROCODONE/ACETAMOPHEN 5/325MG TAB PO PRN (07:11)
[2016-06-15] MEDS: LACTATED RINGER'S 1000ML 1,000 ML IV SCH (07:11)
[2016-06-15 07:18] VITALS: BP 104/65; PULSE 51; TEMP 36.6; O2SAT 93
[2016-06-15] MEDS ORDERED: PANTOprazole SOD 40 MG TAB PO SCH (09:00)
--- NOTE | 2016-06-15 10:01 | Surgery Progress Note ---
Surgery Progress Note Date of Service Jun 15, 2016. Subjective Post OP Day: 1 + feeling well Objective Vital Signs: Date Time Temp Pulse Resp B/P Pulse Ox O2 Delivery O2 Flow Rate FiO2 06/15/16 07:18 36.6 51 16 104/65 93 Room Air 06/15/16 07:15 Room Air 06/15/16 04:09 36.8 53 14 93/58 90 Room Air 06/15/16 00:00 Room Air 06/14/16 23:58 36.8 43 16 107/66 91 Room Air 06/14/16 18:05 60 16 128/77 06/14/16 17:04 36.9 55 17 124/68 93 Nasal Cannula 2.0 06/14/16 16:32 36.8 53 16 119/73 96 Nasal Cannula 2.0 06/14/16 16:04 36.9 60 16 114/71 95 Nasal Cannula 2.0 06/14/16 15:30 36.3 59 18 109/75 99 Nasal Cannula 2 06/14/16 15:20 60 18 117/65 97 Nasal Cannula 2 06/14/16 15:10 66 18 119/67 99 Nasal Cannula 3 06/14/16 15:00 55 20 117/67 97 Nasal Cannula 3 06/14/16 14:50 57 20 120/60 100 Mask 10 06/14/16 14:40 36.5 61 20 128/78 100 Mask 10 06/14/16 10:26 36.8 58 20 127/68 95 Room Air General Appearance: no apparent distress Abdomen: normal bowel sounds, soft Incision(s): clean, dry, intact, no erythema Assessment & Plan POD 1 doing great pain controlled olman diet ok for d/c instructions given
--- NOTE | 2016-06-15 10:02 | Discharge Instructions ---
Discharge Instructions Admission Reason for Admission: Paraesophageal Hernia Discharge Discharge Diagnosis / Problem: large paraesophageal hernia Discharge Goals Goal(s): Decrease discomfort, Improve function Activity Recommendations Activity Limitations: as noted below Lifting Limitations: no more than 10 pounds Exercise/Sports Limitations: until after follow-up appointment May Resume Sexual Activity: after follow-up appointment Shower/Bathe: tomorrow . Instructions / Follow-Up Instructions / Follow-Up follow up with Dr. Cullen as scheduled. Current Hospital Diet Patient's current hospital diet: Discharge Diet Recommended Diet: Full Liquid Diet (softs/liquids as discussed. ) Pending Studies Studies pending at discharge: no Medical Emergencies . Who to Call and When: Medical Emergencies: If at any time you feel your situation is an emergency, please call 911 immediately. . Non-Emergent Contact Non-Emergency issues call your: Primary Care Provider, Surgeon Call Non-Emergent contact if: temperature is above 101, your pain is not controlled, wound has increased drainage, wound has increased redness . "Provider Documentation" section prepared by Galo Cullen. VTE Core Measure Inpt VTE Proph given/why not?: Unfractionated heparin SQ, SCD's
[2016-06-15 10:06] VITALS: BP 104/65; PULSE 51; TEMP 36.6; O2SAT 93
--- NOTE | 2016-06-18 15:26 | DISCHARGE SUMMARY ---
PRIMARY DISCHARGE DIAGNOSIS: Symptomatic large incarcerated paraesophageal hernia. PROCEDURE PERFORMED: Laparoscopic repair of large paraesophageal hernia with gastropexy. HOSPITAL COURSE: The patient is a 65-year-old female with a large incarcerated paraesophageal hernia, admitted through same day and taken to the operating room for repair and gastropexy. The procedure was well tolerated. She was transferred to the surgical floor for overnight observation. On postoperative day #1 period, she was tolerating oral analgesics and a liquid diet. Her incisions were clean and dry. She was stable for discharge. DISCHARGE INSTRUCTIONS: Discharge home. Follow up with Dr. Cullen in 1-2 weeks. Continue full liquid diet. DISCHARGE MEDICATIONS: [place] 1-2 tablets every 4 hours as needed, Zofran 4 mg sublingual q. 6 hours as needed, resume home medications, Protonix 40 mg daily, Carafate 1 gram a.c. and at bedtime daily, multivitamin, glucosamine supplement and vitamin B12 100 mcg daily.
== END 2016-06-15 10:58 | disposition home or self-care (01) ==
LOC: ENRESERVDT → ENRESERVTM → C.ACU 09:48 → C.MSW 10:05
PROVIDERS: ADMIT Surgery; ATTEND Surgery
DX: K44.9 Diaphragmatic hernia without obstruction or gangrene (principal)

== ENCOUNTER → 2016-06-26 | Outpatient (CLI) | payer OTHER ==
[~2016-06-26] MED LIST changes: -CEFAZOLIN 2000 MG/60 ML D5W IV SCH; +HYDR-5688 PO; -LACTATED RINGER'S 1000ML 1,000 ML IV SCH; +ONDA4TAB10 SL
--- NOTE | 2016-06-26 12:15 | DIAGNOSTIC IMAGING REPORT ---
THYROID ULTRASOUND CLINICAL HISTORY: Follow up thyroid nodule seen on CT. COMPARISON STUDY: Chest CT June 06, 2016. TECHNIQUE: Sonography of the thyroid gland was performed. FINDINGS: The right thyroid lobe measures 5.9 x 1.9 x 2.5 cm and the left lobe measures 5.6 x 1.5 x 1.9 cm. Note is made of a 3 x 1.7 x 2.5 cm nodule within the lower pole of the right thyroid lobe which corresponds to the nodule shown on prior CT. This nodule is predominantly solid with small cystic spaces and meets criteria for biopsy based on size. There is also a 0.8 cm hypoechoic nodule within the upper pole of the right lobe. There is a 0.4 cm hypoechoic left lobe nodule. These 2 smaller nodules do not meet criteria for biopsy. IMPRESSION: 3 cm right lobe thyroid nodule which corresponds to the nodule shown on prior CT. Ultrasound-guided fine needle aspiration is recommended. Electronically signed by: Robbie Aviles M.D. 06/26/2016 12:14 PM Dictated Date/Time: 06/26/2016 12:11 PM
== END | disposition home or self-care (01) ==
LOC: C.ULTR 11:30
PROVIDERS: ATTEND Internal Medicine
DX: E04.1 Nontoxic single thyroid nodule (principal)

== ENCOUNTER → 2016-07-01 | Outpatient (CLI) | payer OTHER ==
--- NOTE | 2016-07-01 13:27 | Discharge Instructions ---
Discharge Instructions Procedure Procedure Date: Jul 01, 2016. Reason for visit: Thyroid Nodule. Discharge Discharge Date: Jul 01, 2016. Discharge Diagnosis: s/p right lobe thyroid nodule FNA Instructions Activity Recommendations: No limitations Return to School/Work: no limitations Recommended Home Diet: No Limitations Provider Instructions: ACTIVITY RECOMMENDATIONS: * Rest today. * Resume regular activity in one day. MEDICATIONS: * May take Tylenol or Ibuprofen as needed for pain. DIET: * Resume previous diet. SPECIAL CARE INSTRUCTIONS: Call your doctor if: * Temperature above 101 degrees F. * Pain not relieved by pain medicine ordered. * Increased drainage or redness from incision. * Notify your doctor with any questions or concerns. Call your doctor or go to the nearest Emergency Department if you experience: * Increased chest pain or shortness of breath. FOLLOW UP VISIT: Follow-up with Referring Physician as scheduled. Allergies Coded Allergies: No Known Allergies (Unverified , 06/14/16) Tosha Ellison Recommendations: Call your doctor if: * Temperature above 101 degrees * Pain not relieved by pain medicine ordered * There is increased drainage or redness from any incision * You have any unanswered questions or concerns. Your Doctors Instructions noted above were prepared by provider Robbie Aviles. Patient Signature Section: Patient Instructions Signature Page Ghislaine Kaminski Patient (or Guardian) Signature/Date: I have read and understand the instructions given to me by my caregivers. Caregiver/RN/Doctor Signature/Date: The above-named patient and/or guardian has received patient instructions on this date. + Original Patient Signature Page (only) stays with chart. Please make copy for patient.
--- NOTE | 2016-07-01 14:26 | DIAGNOSTIC IMAGING REPORT ---
ULTRASOUND GUIDED FINE NEEDLE ASPIRATION OF 3 CM RIGHT LOBE THYROID NODULE CLINICAL HISTORY: Thyroid nodule. COMPARISON STUDY: Thyroid ultrasound June 26, 2016. PROCEDURE: The procedure, risks and benefits were discussed with the patient. The patient agreed to the procedure and informed written consent was obtained. The procedure was performed by Dr. Aviles following a timeout. The 3 cm right lobe thyroid nodule was targeted. Skin of the right neck was prepped and draped in sterile fashion and local anesthesia was achieved with 1% lidocaine. Under direct ultrasound guidance, 6 25-gauge fine needle aspirations of the right lobe nodule were performed. Adequacy of the samples was indeterminate at the completion of the study. However, no additional passes were performed given a total of 6 passes. The patient tolerated the procedure well and no immediate complications were evident. IMPRESSION: Ultrasound guided fine needle aspiration of 3 cm right lobe thyroid nodule. Electronically signed by: Robbie Aviles M.D. 07/01/2016 2:24 PM Dictated Date/Time: 07/01/2016 2:22 PM
== END | disposition home or self-care (01) ==
LOC: C.ULTR 12:30
PROVIDERS: ATTEND Internal Medicine
DX: E04.1 Nontoxic single thyroid nodule (principal)

== ENCOUNTER → 2016-10-09 | Outpatient (CLI) | payer OTHER | END | disposition home or self-care (01) | LOC: C.LABSPEC 17:40 | PROVIDERS: ATTEND Nurse Practitioner | DX: J02.9 Acute pharyngitis, unspecified (principal) ==

== ENCOUNTER → 2016-12-16 | Outpatient (CLI) | payer OTHER ==
[~2016-12-16] MED LIST changes: -HYDR-5688 PO; -ONDA4TAB10 SL
[2016-12-16 12:27] LABS: ALT/SGPT 20 U/L (12-78); AST/SGOT 14 U/L (15-37); BLOOD UREA NITROGEN 15 mg/dl (7-18); BUN/CREATININE RATIO 16.1 (10-20); CALCIUM 9.4 mg/dl (8.5-10.1); CARBON DIOXIDE 27 mmol/L (21-32); CHLORIDE 108 mmol/L (98-107); CHOLESTEROL 224 mg/dl (0-200); CREATININE 0.94 mg/dl (0.60-1.20); GLUCOSE 91 mg/dl (70-99); POTASSIUM 4.4 mmol/L (3.5-5.1); SODIUM 141 mmol/L (136-145); TRIGLYCERIDES 164 mg/dl (0-150); VERY LOW DENSITY LIPOPROT CALC 33 mg/dl
[2016-12-16 12:38] LABS: ALKALINE PHOSPHATASE 73 U/L (45-117); HDL CHOLESTEROL 75 mg/dl; LDL CHOLESTEROL CALCULATED 116 mg/dl; THYROID STIMULATING HORMONE 0.181 uIu/ml (0.300-4.500)
== END | disposition home or self-care (01) ==
LOC: C.LABBFT 09:38
PROVIDERS: ATTEND Internal Medicine
DX: Z00.00 Encounter for general adult medical examination without abnormal findings (principal); K86.2 Cyst of pancreas

== ENCOUNTER → 2017-01-09 | Outpatient (CLI) | payer OTHER | END | disposition home or self-care (01) | LOC: C.MAMM 08:07 | PROVIDERS: ATTEND Internal Medicine | DX: M85.89 Other specified disorders of bone density and structure, multiple sites (principal) ==

== ENCOUNTER → 2017-04-29 | Outpatient (CLI) | payer OTHER ==
--- NOTE | 2017-04-30 14:10 | MAMMOGRAPHY REPORT ---
BILATERAL DIGITAL SCREENING MAMMOGRAM TOMOSYNTHESIS WITH CAD: 04/29/2017 CLINICAL HISTORY: Routine screening. Patient has no complaints. TECHNIQUE: Breast tomosynthesis in addition to standard 2D mammography was performed. Current study was also evaluated with a Computer Aided Detection (CAD) system. COMPARISON: Comparison is made to exams dated: 03/21/2015 mammogram, 04/19/2016 mammogram, 02/07/2014 mammogram, 02/01/2013 mammogram, 01/27/2012 mammogram, and 01/23/2011 mammogram - [facility]. BREAST COMPOSITION: There are scattered areas of fibroglandular density in both breasts. FINDINGS: A 5 mm focal asymmetry in the 9:00 posterior right breast appears similar on prior mammogra ms dating back to at least 2010, therefore likely benign. No new suspicious mass, architectural dist ortion or cluster of microcalcifications is seen. IMPRESSION: ACR BI-RADS CATEGORY 1: NEGATIVE There is no mammographic evidence of malignancy. A 1 year screening mammogram is recommended. The pa tient will receive written notification of the results. Approximately 10% of breast cancers are not detected with mammography. A negative mammographic report should not delay biopsy if a clinically suggestive mass is present. Yanira Jensen M.D. ay/:04/29/2017 16:12:48 Pan Washer: Rylee PIERCE)(M), [facility] letter sent: Normal 1/2 BI-RADS Code: ACR BI-RADS Category 1: Negative
== END | disposition home or self-care (01) ==
LOC: C.MAMM 09:48
PROVIDERS: ATTEND Internal Medicine
DX: Z12.31 Encounter for screening mammogram for malignant neoplasm of breast (principal)

== ENCOUNTER → 2017-06-13 | Outpatient (CLI) | payer OTHER ==
[2017-06-13 16:47] LABS: BLOOD UREA NITROGEN 20 mg/dl (7-18); CREATININE 0.91 mg/dl (0.60-1.20)
== END | disposition home or self-care (01) ==
LOC: C.LABBFT 14:24
PROVIDERS: ATTEND Internal Medicine
DX: K86.2 Cyst of pancreas (principal); M85.80 Other specified disorders of bone density and structure, unspecified site; E05.90 Thyrotoxicosis, unspecified without thyrotoxic crisis or storm

== ENCOUNTER → 2017-06-16 | Outpatient (CLI) | payer OTHER ==
[~2017-06-16] MED LIST changes: +GADAVIST IV PRN
--- NOTE | 2017-06-16 14:35 | DIAGNOSTIC IMAGING REPORT ---
ABDOMEN COMBO CLINICAL HISTORY: 66 years-old Female presenting with K86.2 Cystic mass of pancreas, Cystic lesion seen on CT scan May. TECHNIQUE: Multisequence, multiplanar MR imaging of the abdomen was performed before and after the administration of intravenous contrast. IV contrast: 9 mL of Gadavist. COMPARISON: CT from 06/06/2016. FINDINGS: Localizer images: Unremarkable. Lung bases: Lungs and pleural spaces clear. Normal heart size. No pericardial or pleural effusion. Liver: Normal morphology. Hepatic fat fraction measures 1.5%, which is normal. No focal lesion. Patent hepatic vasculature. Biliary: Right anterior hepatic duct inserts onto the left hepatic duct prior to the confluence with the right posterior duct. No intrahepatic biliary ductal dilatation. Mild prominence of the extra hepatic ducts likely a consequence of a reservoir effect in the post cholecystectomy state. Gallbladder surgically absent. Pancreas: Numerous punctate T2 hyperintense nonenhancing foci scattered throughout the mildly atrophic pancreatic parenchyma. Lobular 6 mm nonenhancing cystic lesion at the pancreatic head, which appears to connect with the main pancreatic duct. No pancreatic ductal dilatation. Spleen: Normal. Adrenal glands: Normal. Kidneys and ureters: Normal. No hydronephrosis. Bowel: Moderate hiatal hernia. The appendix is normal. No bowel obstruction. Peritoneal cavity: No free fluid or intraperitoneal gas. Lymph nodes: No enlarged lymph nodes in the abdomen. Vasculature: Aorta and IVC patent and normal in caliber. Abdominal wall: Normal. Musculoskeletal: Normal. IMPRESSION: 1. Numerous punctate cystic lesions in the pancreas, the largest measuring 6 mm. 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 No pancreatic ductal dilatation or other worrisome features. These have been stable for one year. Follow-up could be considered in 2-3 years per the international consensus guidelines 2012 for the management of IPMN. 2. Moderate hiatal hernia. Electronically signed by: Yo Linton M.D. 06/16/2017 2:33 PM Dictated Date/Time: 06/16/2017 2:22 PM
== END | disposition home or self-care (01) ==
LOC: C.MRI 12:16
PROVIDERS: ATTEND Internal Medicine
DX: K86.2 Cyst of pancreas (principal); K44.9 Diaphragmatic hernia without obstruction or gangrene

== ENCOUNTER → 2017-07-03 | Outpatient (CLI) | payer OTHER ==
[~2017-07-03] MED LIST changes: -GADAVIST IV PRN
--- NOTE | 2017-07-03 10:16 | DIAGNOSTIC IMAGING REPORT ---
THYROID ULTRASONOGRAPHY CLINICAL HISTORY: Right-sided thyroid nodule COMPARISON STUDY: June 2016 FINDINGS: The right lobe measures 58 x 20 x 21 mm. There is a circumscribed wider than tall relatively isoechoic predominantly solid 27 x 18 x 24 mm. There is a circumscribed hypoechoic wider than tall 7 x 6 x 7 mm upper pole nodule. The left lobe measures 56 x 17 x 17 mm. The lobe is slightly heterogeneous in echotexture. There is a 4 mm hypoechoic upper pole nodule. IMPRESSION: Bilateral thyroid nodules essentially unchanged in size when compared with the prior June 2016 study Electronically signed by: sOcar Galarza M.D. 07/03/2017 10:15 AM Dictated Date/Time: 07/03/2017 10:13 AM
== END | disposition home or self-care (01) ==
LOC: C.ULTR 09:41
PROVIDERS: ATTEND Internal Medicine
DX: E04.2 Nontoxic multinodular goiter (principal)

== ENCOUNTER 2017-08-21 15:58 | Emergency (ER) | payer OTHER ==
[~2017-08-21] VITALS: Ht 167.6 cm; Wt 94.8 kg
[2017-08-21 16:04] VITALS: TEMP 36.7; Ht 167.6 cm; Wt 94.8 kg
[2017-08-21] MEDS ORDERED: TRAMADOL HCL 50 MG TAB PO STA (16:46)
[2017-08-21] MEDS ORDERED: IBUPROFEN 600 MG TAB PO STA (16:46)
--- NOTE | 2017-08-21 16:53 | EMERGENCY ROOM VISIT NOTE ---
ED Visit Note First contact with patient: 16:16 CHIEF COMPLAINT: knee pain HISTORY OF PRESENT ILLNESS: This 67-year-old female patient presents to the emergency department a few hours after sustaining an injury to the left knee when she accidentally twisted it walking down the steps. She has severe pain in the middle of the knee with weightbearing. She has taken Tylenol with minimal relief of the pain. The patient also remembers twisting her knee about 1 month ago in [place]. Otherwise, no previous injury or history of arthritis. REVIEW OF SYSTEMS: A 6 system review of systems was completed with positives and pertinent negatives listed in the HPI. ALLERGIES: No known drug allergies MEDICATIONS list was personally reviewed PMH: Otherwise healthy SOCIAL HISTORY: Occasional EtOH, denies tobacco use PHYSICAL EXAM: Vital Signs: Reviewed Nurse's notes, vital signs including blood pressure stable. GENERAL: 67-year-old female, no acute distress, but appears in pain, well-developed, well-nourished. MENTAL STATUS: Alert, oriented to person place and time, and cooperative. MUSCULOSKELETAL: The left knee is mildly swollen. There is no ecchymosis. There is no joint effusion present. The patient is tender over the joint line.The patella does not subluxate. Range of motion is slightly limited secondary to pain. Strength of the quads and hamstrings is 5/5. Mario's is negative. Cali's and Anterior Drawer tests are negative. There is pain with varus and valgus stressing. The foot and toes are warm and well-perfused. Dorsalis pedis pulse 2+. Sensation to pain and light touch is intact. Capillary refill less than 2 seconds. EMERGENCY DEPARTMENT COURSE: I examined the patient. The patient was medicated with Ultram and Motrin. X-rays of the left knee were reviewed by myself and read by radiology IMPRESSION: 1. No acute fracture. 2. Moderate tricompartmental osteoarthritis of the left knee. 3. Possible small left knee joint effusion. Electronically signed by: Robbie Aviles M.D. 08/21/2017 5:08 PM Dictated Date/Time: 08/21/2017 5:07 PM These findings were discussed with the patient. She voiced understanding. . The patient was placed in a knee immobilizer under my direction and the position was satisfactory. The patient was instructed on the use of crutches. The patient was discharged home in good condition. DIAGNOSIS: Left knee injury DISCHARGE INSTRUCTIONS: Ice and elevate knee for swelling and pain. Wear knee immobilizer when up and about. Use crutches - minimal weight on foot. Ibuprofen 600 mg and/or Tylenol 1000 mg every 8 hours. You may also alternate these medications for more effective pain relief: Ibuprofen --4 HRS--> Tylenol --4 HRS--> ibuprofen --4 HRS--> Tylenol .... Please take tramadol 1 tab every 4 hours as needed for severe pain. This may be taken with ibuprofen and Tylenol. Please call the orthopedic doctor, Dr. Delgadillo, tomorrow morning for a follow-up appointment. A number has been provided. Please do not hesitate to return to the emergency department with any new, worsening or concerning symptoms It was a pleasure participating in your care today This chart was completed in part utilizing [employer] Speech Voice Recognition software. Attempts were made to minimize the grammatical errors, random word insertions, pronoun errors and incomplete sentences. Any formal questions or concerns about the content, text or information contained within the body of this dictation should be directly addressed to the provider for clarification.
--- NOTE | 2017-08-21 17:09 | DIAGNOSTIC IMAGING REPORT ---
L KNEE 3 VIEWS CLINICAL HISTORY: left knee pain COMPARISON: None FINDINGS: Alignment of the left knee is anatomic. No fracture or suspicious lesion is identified on this exam. There is a possible small left knee joint effusion. There is moderate medial and patellofemoral compartment joint space narrowing. There is osteophytosis within the 3 compartments. IMPRESSION: 1. No acute fracture. 2. Moderate tricompartmental osteoarthritis of the left knee. 3. Possible small left knee joint effusion. Electronically signed by: Robbie Aviles M.D. 08/21/2017 5:08 PM Dictated Date/Time: 08/21/2017 5:07 PM
[2017-08-21] MEDS ORDERED: CHOL1TAB42 PO (17:11)
[2017-08-21] MEDS ORDERED: TRAM-453 PO (17:44)
[2017-08-21 17:47] VITALS: BP 132/81; PULSE 74; O2SAT 97
--- NOTE | 2017-08-21 17:51 | EMERGENCY ROOM VISIT NOTE ---
ED Visit Note First contact with patient: 16:16 Staff note: I have reviewed the Patients chart and have discussed this case with my PA. I generally agree with the ED note and findings.
== END 2017-08-21 18:01 | disposition home or self-care (01) ==
LOC: C.EDB 15:59 → C.EDD 18:01
DX: S89.92XA Unspecified injury of left lower leg, initial encounter (principal); X50.1XXA Overexertion from prolonged static or awkward postures, initial encounter

== ENCOUNTER 2019-02-09 09:58 | Inpatient (IN) ==
--- NOTE | 2019-01-19 12:27 | Anesthesiology Consultation ---
Date of Service January 19, 2019 Assessment & Plan Chart Review Chart Review: Pending: Refer to Additional Notes / Consult section (awaiting PAT testing) History Surgery Operation Date: 02/09/19 07:00 Proposed Procedures p Left Total Knee Arthroplasty - Bernardino Delgadillo MD Height/Weight Height: 5 ft 6.5 in Weight: 95 kg Allergies Allergy/AdvReac Type Severity Reaction Status Date / Time No Known Allergies Allergy Unverified 01/12/19 08:25 Medications Home Medications Medication Instructions Recorded Confirmed Last Taken calcium carbonate [Calcium 500] 500 mg PO QPM 01/12/19 01/13/19 Unknown cholecalciferol (vitamin D3) 5,000 unit PO QPM 01/12/19 01/13/19 Unknown [Vitamin D3] docusate sodium [Stool Softener] 100 mg PO QPM 01/12/19 01/13/19 Unknown ferrous sulfate [iron] 325 mg PO QPM 01/12/19 01/13/19 Unknown glucosamine sulfate [Glucosamine] 500 mg PO QPM 01/12/19 01/13/19 Unknown multivitamin 1 tab PO QPM 01/12/19 01/13/19 Unknown ibuprofen 400 mg PO QID PRN 01/19/19 01/19/19 Unknown omeprazole 40 mg PO QAM 01/19/19 01/19/19 Unknown tramadol 50 mg PO BID PRN 01/19/19 01/19/19 Unknown Past Medical History Medical History 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) Stable on imaging - no further imaging recommended Osteopenia (Chronic) Subclinical hyperthyroidism (Chronic) Thyroid nodule (Chronic) Bilateral nodules stable on imaging - no further imaging recommended History of pulmonary embolism (Resolved) 11/2017 - treated w/ warfarin - cause unk History of DVT (deep vein thrombosis) (Resolved) RLE - 11/2017 - treated w/ warfarin - cause unk GERD (gastroesophageal reflux disease) (Chronic) Osteoarthritis (Chronic) Iron deficiency anemia (Chronic) Pulmonary embolus (Resolved) Paraesophageal hernia (Chronic) Exercise / Class Metabolic Activity II 4-5 Yardwork/Stairs/Walk up hill Past Surgical History Surgical History History of cholecystectomy History of colonoscopy History of esophagogastroduodenoscopy (EGD) History of tonsillectomy S/P repair of paraesophageal hernia Social History Smoking Status: Never smoker Do You Dip or Chew Tobacco: No Hx Alcohol Use: Yes alcohol intake frequency: holidays/special occasions only Hx Substance Use: No substance use type: does not use Physical Exam Vital Signs Last Vital Signs Temp 98.1 F 01/19/19 12:14 Pulse 65 01/19/19 12:14 Resp 18 01/19/19 12:14 BP 97/66 L 01/19/19 12:14 Pulse Ox 96 01/19/19 12:14 ENMT Mouth: no dentition abnormality Thyromental Distance: > or= 3.5 Finger Breadths Mallampati Class: I Neck normal visual inspection Respiratory normal respiratory effort Auscultation: lungs clear to auscultation bilaterally Cardiovascular Rate/Rhythm: regular rate and regular rhythm Testing Electrocardiogram Date: 01/19/19 Findings: + SB @ (57 bpm)
[2019-01-19 13:34] LABS: Basophils # (auto) 0.01 K/uL (0-0.2); Basophils % (auto) 0.2 %; Eosinophils # (auto) 0.18 K/uL (0-0.5); Eosinophils % (auto) 2.8 %; Hematocrit (blood only) 40.9 % (37-47); Hemoglobin 13.5 g/dL (12.0-16.0); Immature Granulocytes # (auto) 0.01 K/uL (0.00-0.02); Immature Granulocytes % (auto) 0.2 %; Lymphocytes # (auto) 2.11 K/uL (1.2-3.4); Lymphocytes % (auto) 32.4 %; Mean Corpuscular Hemoglobin 30.3 pg (25-34); Mean Corpuscular Volume 91.9 fL (80-100); Mean Platelet Volume 10.7 fL (7.4-10.4); Monocytes # (auto) 0.63 K/uL (0.11-0.59); Monocytes % (auto) 9.7 %; Neutrophils # (auto) 3.58 K/uL (1.4-6.5); Neutrophils % (auto) 54.7 %; Platelet Count 306 K/uL (130-400); RDW Coefficient of Variation 13.4 % (11.5-14.5); RDW Standard Deviation 45.1 fL (36.4-46.3); Red Blood Count 4.45 M/uL (4.2-5.4); White Blood Count 6.52 K/uL (4.8-10.8)
[2019-01-19 13:48] LABS: Partial Thromboplastin Ratio 1.1; Partial Thromboplastin Time 30.3 Seconds (21.0-31.0); Prothrombin Time 10.1 Seconds (9.0-12.0)
[2019-01-19 13:49] LABS: Alanine Aminotransferase 22 U/L (12-78); Albumin Level 3.5 gm/dl (3.4-5.0); Aspartate Aminotransferase 20 U/L (15-37); BUN Creatinine Ratio 19.1 (10-20); Blood Urea Nitrogen 18 mg/dl (7-18); Calcium 9.6 mg/dl (8.5-10.1); Carbon Dioxide 27 mmol/L (21-32); Chloride 105 mmol/L (98-107); Creatinine Clr Calc Pharmacy 66.9 ml/min; Est GFR (African American) 72.7; Est GFR (Non-African American) 62.7; Glucose 93 mg/dl (70-99); Potassium 4.6 mmol/L (3.5-5.1); Sodium 138 mmol/L (136-145)
[2019-01-19 13:55] LABS: Alkaline Phosphatase 90 U/L (45-117); Bilirubin Direct < 0.1 mg/dl (0-0.2); Bilirubin,Total 0.4 mg/dl (0.2-1); Total Protein 7.5 gm/dl (6.4-8.2)
--- NOTE | 2019-02-09 06:39 | History & Physical Bridge Note ---
Date of Service February 09, 2019 History & Physical Bridge Note I have examined the patient, reviewed the History & Physical and in the interval since the performance of the History & Physical I have noted the following changes of clinical significance: no changes noted
--- NOTE | 2019-02-09 09:38 | Post Operative Brief Note ---
Immediate Post Op Note v1 Date of Surgery February 09, 2019 Pre & Post Diagnosis Operation Date: 02/09/19 07:00 Pre-Op Diagnosis: Left Knee Osteoarthritis Post-Op Diagnosis: Left Knee Osteoarthritis Procedure Operation Date: 02/09/19 07:00 Actual Procedures p Left Total Knee Arthroplasty(Left) - Bernardino Delgadillo MD Surgeon Bernardino Delgadillo MD Qc Manager Maco Arboleda PA-C (No fellow avail) Estimated Blood Loss 100 Findings Consistent with Post-Op Diagnosis Fluids 1300 cc Specimens Left knee contents Anesthesia Type MAC Spinal Regional Complications none
--- NOTE | 2019-02-09 09:38 | Operative Report ---
Post Operative Report Pre & Post Diagnosis Operation Date: 02/09/19 07:00 Pre-Op Diagnosis: Left Knee Osteoarthritis Post-Op Diagnosis: Left Knee Osteoarthritis Procedure Operation Date: 02/09/19 07:00 Actual Procedures p Left Total Knee Arthroplasty(Left) - Bernardino Delgadillo MD Surgeon Bernardino Delgadillo MD Mesh Cutter Maco Arboleda PA-C (No fellow avail) Estimated Blood Loss 100 Findings See Below Pre-op ROM 5-125 degrees Post-op ROM 0-125 degrees Grade IV changes medial & Patellofemoral compartments, Grade II-III changes LFC. Fluids 1300 cc Specimens Left knee bone contents Drains n/a Anesthesia Type MAC Spinal Regional Complications none Indications This is a 68-year-old female who has clinical and radiographic findings consistent with osteoarthritis of the a left knee. I recommended that a left total knee replacement be performed. The patient understands the risks of surgery, which include but not limited to: bleeding, infection, re-operation, damage to nerves and arteries, continued knee pain, knee stiffness, DVT, and . The patient understands all of these instructions and explanations, all of his questions have been satisfactorily addressed and the patient has elected to proceed. Informed consent was signed. Description of Procedure IMPLANTS: 1) Femur: Left Size #5 [place] Triathlon, PS. 2) Tibia: Triathlon [place] Baseplate, Size #5. 3) Triathlon X3 Poly, #5 x 9mm. 4) Patella: A32 x 10mm X3. 5) Simplex cement x 2. PROCEDURE: The patient was taken to the Operating Room and placed in the supine position after spinal and adductor canal nerve block was administered. My initials and a multidisciplinary time-out were used to identify the left leg as the correct operative limb. A tourniquet was placed high in the thigh. Prior to the incision, 2 grams of intravenous Ancef were given. The left leg was then prepped and draped in a standard sterile fashion. An Esmarch was used to exsanguinate the leg and the tourniquet was inflated to 250 mmHg. The planned mid-line 20 cm incision was created exposing the extensor mechanism. The medial parapatellar arthrotomy was made and the patella was everted. The patella was addressed first. It was prepared by reaming from 22 mm down to 12 mm. An A32 button was found to fit best. The peg holes were made in the standard fashion. The femur was addressed next and the guide lili was placed intramedullary. The initial cutting block was placed with 5 degrees of valgus and removing 8 mm for the anterior cut. The cut was made and the 4-in-1 cutting block for a size 5 femur was placed. These cuts and the cuts to place the box were made in the standard fashion. Our attention was then drawn to the tibia cut with the external cutting guide, taking 2 mm from the medial low side. There was sufficient extension and flexion gap to fit a 9 mm spacer. A #5 Tibial baseplate fit well. A trial with a 9 mm spacer showed excellent stability in both flexion and extension, with good ligament balance. Range of motion of 0-125 degrees. The tibial baseplate was pinned and the final preparation for the keel and stem was made. All the trial components were tested again, with good stability and thumbs free tracking of the patella. All components were removed. The tourniquet was deflated. Hemostasis was obtained. 90 ml of total knee cocktail were injected into the soft tissues and periosteum. A bone plug was placed in the femur and covered with bone wax. After a 15 minute break, the limb was exsanguinated again and the tourniquet was re-inflated. All surfaces were copiously irrigated prior to placement of the components. The femoral component and Tibial baseplate were placed with the first and a the 9 mm X3 poly was placed. The patellar button was placed using Simplex cement during the first batch. Once the cement had cured, the range of motion and stability were unchanged. The extensor mechanism was closed with 1-0 and 0 Vicryl with the knee bent approximately 60 degrees in a standard fashion. The peritenon and deep fascia was closed with 2-0 Vicryl. The subcutaneous layer was closed with 3-0 Vicryl. The skin was closed with Zipline. The limb was cleaned and dried. 4x4 dressing was placed over top followed by ABDs, sterile Webril, and a foot to thigh Rafael bandage. The patient was then transferred to the Recovery Room in stable condition. The sponge and needle counts were correct. POST-OP INSTRUCTIONS: The patient will be WBAT. The patient will be admitted to the hospital. The patient will use the knee immobilizer when ambulating and standing until good quad control is achieved. Labs will be obtained during the stay. DVT prophylaxis will included Lovenox for 3 weeks then switching to aspirin for 3 more weeks, TEDs, and mechanical foot pumps. The dressing will be changed prior to their discharge or postop day #2 and covered with a Silverlon dressing, whichever comes first. I attest to the content of the Intraoperative Record and any orders documented therein. Any exceptions are noted below.
[~2019-02-09 09:58] MED LIST changes: +ATROPINE SULFATE 0.1 MG/ML 10ML SYR IV PRN; +BUPIVACAINE 0.5 % 5 MG/1 ML PF 10ML VIAL ONE; +CEFAZOLIN 2000MG 2,000 MG/15 ML SYR IV SCH; +CeleBREX 200 MG CAP PO SCH; +EPINEPHrine INJ 1 MG/ML AMP ONE; -GLCSC750600 PO; +LIDOCAINE HCL 2% 2 ML VIAL/AMP(20MG/ML) INFIL ONE; +LR 500ML BOLUS, THEN 15ML/HR IV SCH; +LR 60ML/HR IV SCH; +MIDAZOLAM HCL 1 MG/ML 2ML VIAL ONE; -MULT-506 PO; +ONDANSETRON INJ 2 MG/ML 2 ML VIAL ONE; +ORTHO JOINT ANESTHETIC ONE; -PANT40TA PO; +PHENYLEPHRINE HCL 10 MG/ML VIAL ONE; +PROPOFOL IV EMULSION 10 MG/ML 20 ML VIAL IV ONE; +ROPIVACAINE 0.5% 5 MG/ML 30 ML VIAL ONE; +ROPIVACAINE 0.5% HCL/PF 150 MG, BUPIVACAINE 0.5% MPF 30 ML, EPINEPHrine 0.15 MG, Ketoro... INFIL SCH; -SUCR1TAB29 PO; +TRANEXAMIC ACID 1,000 MG **IV Intra-op IV SCH; +TRANEXAMIC ACID 1,000 MG **IV Pre-op IV SCH; -VTMB12100 PO; +ePHEDrine sulfate 50 MG/ML AMP IV PRN; +fentaNYL citrate 100 MCG/2 ML VIAL ONE
[2019-02-09] MEDS ORDERED: ACETAMINOPHEN 500 MG TAB PO PRN (09:59)
[2019-02-09] MEDS ORDERED: HYDROmorphone INJ 1 MG/ML SYRINGE IV PRN (09:59)
[2019-02-09] MEDS ORDERED: ONDANSETRON INJ 2 MG/ML 2 ML VIAL IV PRN (09:59)
[2019-02-09] MEDS ORDERED: DiphenhydrAMINE HCL 50 MG/ML VIAL IV PRN (09:59)
[2019-02-09] MEDS ORDERED: ALUMINUM/MAGNESIUM SUSP 30 ML UDC PO PRN (09:59)
[2019-02-09] MEDS ORDERED: bisacodyL 10 MG SUPP PR PRN (09:59)
[2019-02-09] MEDS ORDERED: METOCLOPRAMIDE HCL INJ 5 MG/ML 2 ML VIAL IV PRN (09:59)
[2019-02-09] MEDS ORDERED: NALOXONE HCL 0.4 MG/1 ML VIAL/CARP IV PRN (09:59)
[2019-02-09] MEDS ORDERED: MAGNESIUM HYDROXIDE SUSP 30 ML UDC PO PRN (09:59)
[2019-02-09] MEDS ORDERED: ONDANSETRON INJ 2 MG/ML 2 ML VIAL ONE (10:03)
--- NOTE | 2019-02-09 10:04 | Operative Report ---
Post Operative Report Pre & Post Diagnosis Operation Date: 02/09/19 07:00 Pre-Op Diagnosis: Left Knee Osteoarthritis Post-Op Diagnosis: Left Knee Osteoarthritis Procedure Operation Date: 02/09/19 07:00 Actual Procedures p Left Total Knee Arthroplasty(Left) - Bernardino Delgadillo MD Surgeon Bernardino Delgadillo MD Ball Truing Machine Operator Maco Arboleda PA-C (No fellow avail) Estimated Blood Loss 100 Findings Consistent with Post-Op Diagnosis Specimens bone and soft tissue Complications none Indications See Dr Delgadillo operative report for full details. Description of Procedure See Dr Delgadillo operative report for full details. I was dental office assistant during entire case to include prepping, draping, limb and instrument handling, wound closure, dressings. I attest to the content of the Intraoperative Record and any orders documented therein. Any exceptions are noted below.
--- NOTE | 2019-02-09 10:15 | XRay Report ---
XR knee LT 2V routine CLINICAL HISTORY: Postoperative examination. Degenerative arthritis. COMPARISON: 01/19/2019 DISCUSSION: There are postsurgical changes of a total left knee arthroplasty and patellar resurfacing . The femoral tibial components appear well seated. There is air within the soft tissues consistent w ith recent surgery.. IMPRESSION: Postsurgical changes of a total left knee arthroplasty. Electronically signed by: Oscar Galarza M.D. 02/09/2019 10:14 AM
[2019-02-09] MEDS ORDERED: ONDANSETRON INJ 2 MG/ML 2 ML VIAL IV STA (10:29)
--- NOTE | 2019-02-09 10:53 | Anesthesiology Progress Note ---
Date of Service February 09, 2019 Anesthesia Post Procedure Vital Signs Vital Signs: Temp Pulse Pulse Pulse Resp BP BP 02/09/19 10:40 36.9 C 71 14 02/09/19 10:30 68 15 101/67 02/09/19 10:25 66 14 103/65 02/09/19 10:21 37.0 C 02/09/19 10:20 66 15 105/65 02/09/19 10:16 66 21 98/63 L 02/09/19 10:15 70 22 02/09/19 10:10 68 18 108/65 02/09/19 10:05 71 22 102/67 02/09/19 10:00 71 22 96/65 L 02/09/19 09:55 77 17 107/67 02/09/19 09:50 77 21 100/63 02/09/19 09:45 85 20 98/64 L 02/09/19 09:43 36.9 C 87 89 21 95/66 L 02/09/19 05:29 36.9 C 66 20 134/85 BP Pulse Ox 02/09/19 10:40 102/67 93 02/09/19 10:30 97 02/09/19 10:25 99 02/09/19 10:21 99 02/09/19 10:20 99 02/09/19 10:16 99 02/09/19 10:15 100 02/09/19 10:10 98 02/09/19 10:05 98 02/09/19 10:00 95 02/09/19 09:55 100 02/09/19 09:50 100 02/09/19 09:45 99 02/09/19 09:43 95/66 L 100 02/09/19 05:29 96 Pain Intensity Left Knee: Pain Intensity: 0 Transfer of Care Handoff Completed per policy Notes Mental Status: alert / awake / arousable Patient Amnestic to Procedure: Yes Nausea / Vomiting: adequately controlled Pain: adequately controlled Airway Patency, RR, SpO2: stable & adequate BP & HR: stable & adequate Hydration State: stable & adequate Anesthetic Complications: no major complications apparent
[2019-02-09] MEDS ORDERED: SODIUM CHLORIDE 0.9% 1000ML 1,000 ML IV SCH (11:00)
[2019-02-09] MEDS: CEFAZOLIN 2000MG 2,000 MG/15 ML SYR IV SCH ×2 (15:46→23:32)
--- NOTE | 2019-02-09 17:03 | Orthopedic Progress Note ---
Date of Service February 09, 2019 Assessment & Plan (1) S/P total knee arthroplasty: POD # 0, s/p L TKA, Doing as well as expected. Resume diet. Continue pain control. WBAT with walker, and assistance. Use the immobilizer when ambulating until demonstrates good quad control. PT/OT. DVT prophylaxis:TEDs and foot pumps while in the hospital. Continue TEDs on operative leg for 3 weeks. We will start Lovenox tomorrow due to spinal anesthesia. Lovenox will be continued for 3 weeks and then switch to aspirin 325 orally for another 3 weeks twice a day. We will check a.m. labs. Will change dressing to Silverlon postop day #2 or upon discharge, whichever comes first. Ice, elevate left lower extremity. Discharge planning. Present on Admission?: No Subjective feeling good Review of Systems Review of Systems: All systems reviewed & are unremarkable except as noted in HPI & below Physical Exam Physical Exam: LLE:Neurovascularly intact. Dressing is clean, dry, intact. She is able to perform a straight leg raise without the immobilizer. Calf is soft and nontender. Results & Data Vital Signs (Past 12 Hours) Vital Signs Temp Pulse Pulse Pulse Pulse Resp BP 02/09/19 15:13 36.6 C 72 17 02/09/19 13:39 78 16 02/09/19 12:36 71 18 02/09/19 11:36 69 18 02/09/19 11:12 66 18 02/09/19 10:40 36.7 C 71 71 14 02/09/19 10:30 68 15 101/67 02/09/19 10:25 66 14 103/65 02/09/19 10:21 37.0 C 02/09/19 10:20 66 15 105/65 02/09/19 10:16 66 21 98/63 L 02/09/19 10:15 70 22 02/09/19 10:10 68 18 108/65 02/09/19 10:05 71 22 102/67 02/09/19 10:00 71 22 96/65 L 02/09/19 09:55 77 17 107/67 02/09/19 09:50 77 21 100/63 02/09/19 09:45 85 20 98/64 L 02/09/19 09:43 36.9 C 87 89 21 95/66 L 02/09/19 05:29 36.9 C 66 20 BP BP Pulse Ox 02/09/19 15:13 99/64 L 95 02/09/19 13:39 101/64 92 02/09/19 12:36 103/69 94 02/09/19 11:36 107/65 96 02/09/19 11:12 99/66 L 97 02/09/19 10:40 102/67 97 02/09/19 10:30 97 02/09/19 10:25 99 02/09/19 10:21 99 02/09/19 10:20 99 02/09/19 10:16 99 02/09/19 10:15 100 02/09/19 10:10 98 02/09/19 10:05 98 02/09/19 10:00 95 02/09/19 09:55 100 02/09/19 09:50 100 02/09/19 09:45 99 02/09/19 09:43 95/66 L 100 02/09/19 05:29 134/85 96 Diagnostic Findings RADIOGRAPHS: AP and lateral left knee, show evidence of recent cemented TKA, components in good position.
[2019-02-09] MEDS: FERROUS GLUCONATE 324 MG TAB PO SCH (17:57)
[2019-02-09] MEDS: ASCORBIC ACID 500 MG TAB PO SCH (17:58)
[2019-02-09] MEDS: CeleBREX 200 MG CAP PO SCH (20:21)
[2019-02-09] MEDS: DOCUSATE SODIUM 100 MG CAP PO SCH (20:21)
[2019-02-09] MEDS: CALCIUM CARBONATE 1250MG TAB PO SCH (20:22)
[2019-02-09] MEDS: SENNA 8.6 MG TAB PO SCH (20:24)
[2019-02-09] MEDS: CHOLECALCIFEROL 1,000 UNITS TAB PO SCH (20:24)
[2019-02-09] MEDS: OXYCODONE HCL IR 5 MG TAB (IMMEDIATE RELEASE) PO PRN (20:29)
[2019-02-09] MEDS ORDERED: ENOXAPARIN INJ 30 MG/0.3 ML SYR SQ SCH (21:00)
[2019-02-09] MEDS ORDERED: MULTIVITAMIN TAB PO SCH (21:00)
[2019-02-09] MEDS ORDERED: DOCUSATE SODIUM 100 MG CAP PO SCH (21:00)
[2019-02-10] MEDS: OXYCODONE HCL IR 5 MG TAB (IMMEDIATE RELEASE) PO PRN ×5 (00:30→21:13)
[2019-02-10 06:04] LABS: Hematocrit (blood only) 33.7 % (37-47); Hemoglobin 11.1 g/dL (12.0-16.0); Mean Corpuscular Hemoglobin 30.4 pg (25-34); Mean Corpuscular Hgb Conc 32.9 g/dL (32-36); Mean Corpuscular Volume 92.3 fL (80-100); Mean Platelet Volume 10.3 fL (7.4-10.4); Platelet Count 215 K/uL (130-400); RDW Coefficient of Variation 13.9 % (11.5-14.5); RDW Standard Deviation 47.4 fL (36.4-46.3); Red Blood Count 3.65 M/uL (4.2-5.4); White Blood Count 12.55 K/uL (4.8-10.8)
[2019-02-10 06:35] LABS: BUN Creatinine Ratio 24.3 (10-20); Calcium 9.4 mg/dl (8.5-10.1); Creatinine Clr Calc Pharmacy 71.2 ml/min; Est GFR (African American) 77.7; Potassium 4.2 mmol/L (3.5-5.1)
[2019-02-10] MEDS: PANTOprazole 40 MG TAB PO SCH (08:40)
[2019-02-10] MEDS: FERROUS GLUCONATE 324 MG TAB PO SCH ×2 (08:40→17:54)
[2019-02-10] MEDS: ENOXAPARIN INJ 30 MG/0.3 ML SYR SQ SCH ×2 (08:41→21:14)
[2019-02-10] MEDS: DOCUSATE SODIUM 100 MG CAP PO SCH ×2 (08:41→21:15)
[2019-02-10] MEDS: ASCORBIC ACID 500 MG TAB PO SCH ×2 (08:41→17:54)
[2019-02-10] MEDS: CeleBREX 200 MG CAP PO SCH ×2 (08:41→21:14)
[2019-02-10] MEDS: MULTIVITAMIN TAB PO SCH (08:41)
--- NOTE | 2019-02-10 10:10 | Orthopedic Progress Note ---
Date of Service February 10, 2019 Assessment & Plan (1) S/P total knee arthroplasty: POD # 1, s/p L TKA, Doing as well as expected. Continue regular diet. Continue pain control. WBAT with walker, and assistance. Use the immobilizer when ambulating until demonstrates good quad control. PT/OT. DVT prophylaxis:TEDs and foot pumps while in the hospital. Continue TEDs on operative leg for 3 weeks. We will start Lovenox tomorrow due to spinal anesthesia. Lovenox will be continued for 3 weeks. Then switch to aspirin 81 orally for another 3 weeks twice a day discussed with Dr Delgadillo, since patient is on celebrex as well). Will change dressing to Silverlon postop day #2 or upon discharge, whichever comes first. Ice, elevate left lower extremity. Discharge planning. Plans to go home with HH. Has steps. Will have PT today and meet with SS. Plans to go home either today but most likely tomorrow. I, Dr. Delgadillo, saw and examined the patient and discussed the management with my PA. I reviewed my PAs note and agree with the documented findings and the plan of care I developed. Due to the patient's nausea this morning and continued low BP, will plan on discharging them tomorrow if her pain remains controlled and she is medically stable. In addition she will be given a 1 L bolus of fluids. Subjective Patient sitting up in bed eating breakfast. Said IV was discontinued. She is relying on PO pain medication which is helping. Has most of discomfort behind her knee and that is where she has been applying the ice. She has gotten up and is dressed. Walked the kelly with the walker and knee immobilizer. Able to void. Denies f/c/s, CP, SOB, N/V, lightheadedness. She notes that she had nausea following working with PT this a.m. Review of Systems Review of Systems: All systems reviewed & are unremarkable except as noted in HPI & below Physical Exam Physical Exam: Sitting up in bed. Alert and Oriented x 3. Eating breakfast. Left leg YURIY and dressing intact. B LE NV intact. Sensation intact to light touch. Brisk capillary refill. Palpable DP and PT pulses. Able to wiggle toes and ankles. Neg homans. Calves soft. 5/5 B EHL, TA, gastroc. 1+ PE L LE. Results & Data Vital Signs (Past 12 Hours) Vital Signs Temp Pulse Pulse Resp BP Pulse Ox 02/10/19 07:35 36.7 C 69 18 97/65 L 94 02/10/19 03:18 36.7 C 70 16 94/63 L 92 02/09/19 22:50 36.8 C 76 16 97/61 L 93 Laboratory Results 02/10/19 02/10/19 Range/Units 05:12 05:12 WBC 12.55 H (4.8-10.8) K/uL RBC 3.65 L (4.2-5.4) M/uL Hgb 11.1 L (12.0-16.0) g/dL Hct 33.7 L (37-47) % MCV 92.3 (80-100) fL MCH 30.4 (25-34) pg MCHC 32.9 (32-36) g/dL RDW Std Deviation 47.4 H (36.4-46.3) fL RDW Coeff of Jr 13.9 (11.5-14.5) % Plt Count 215 (130-400) K/uL MPV 10.3 (7.4-10.4) fL Sodium 140 (136-145) mmol/L Potassium 4.2 (3.5-5.1) mmol/L Chloride 106 (98-107) mmol/L Carbon Dioxide 27 (21-32) mmol/L Anion Gap 6.0 (3-11) BUN 21 H (7-18) mg/dl Creatinine 0.88 (0.6-1.2) mg/dl Est Cr Clr Drug Dosing 71.2 ml/min Est GFR ( Amer) 77.7 Est GFR (Non-Af Amer) 67.0 BUN/Creatinine Ratio 24.3 H (10-20) Glucose 100 H (70-99) mg/dl Calcium 9.4 (8.5-10.1) mg/dl
[2019-02-10] MEDS ORDERED: SODIUM CHLORIDE 0.9% 1000ML 1,000 ML IV ONE ×2 (11:56→17:11)
[2019-02-10] MEDS: SENNA 8.6 MG TAB PO SCH (21:14)
[2019-02-10] MEDS: CHOLECALCIFEROL 1,000 UNITS TAB PO SCH (21:15)
[2019-02-10] MEDS: CALCIUM CARBONATE 1250MG TAB PO SCH (21:15)
[2019-02-11] MEDS: OXYCODONE HCL IR 5 MG TAB (IMMEDIATE RELEASE) PO PRN ×3 (03:21→14:12)
[2019-02-11] MEDS: DOCUSATE SODIUM 100 MG CAP PO SCH (08:37)
[2019-02-11] MEDS: MULTIVITAMIN TAB PO SCH (08:37)
[2019-02-11] MEDS: FERROUS GLUCONATE 324 MG TAB PO SCH (08:37)
[2019-02-11] MEDS: CeleBREX 200 MG CAP PO SCH (08:38)
[2019-02-11] MEDS: ASCORBIC ACID 500 MG TAB PO SCH (08:38)
[2019-02-11] MEDS: ENOXAPARIN INJ 30 MG/0.3 ML SYR SQ SCH (08:38)
[2019-02-11] MEDS: PANTOprazole 40 MG TAB PO SCH (08:38)
--- NOTE | 2019-02-11 12:18 | Orthopedic Progress Note ---
Date of Service February 11, 2019 Assessment & Plan (1) S/P total knee arthroplasty: I did have a lengthy discussion with the patient and her family regarding her symptoms and current management. I will hold off any additional fluid bolus at this time, as she has already received 2 L yesterday. Vitals remained stable. I would like her to increase oral fluid intake this morning and this afternoon. She will have lunch and try a second session of physical therapy. Hopefully she will not have any further episodes of nausea or vomiting and still be able to return home today. Follow-up in the office on February 24 as scheduled with Lyudmila for Zipline removal. Call the office with any other concerns. I, Dr. Delgadillo, saw and examined the patient and discussed the management with my PA. I reviewed my PAs note and agree with the documented findings and the plan of care I developed. Patient is okay for discharge later today. Subjective Feeling better today Patient is seen in her room this morning. Family are in attendance. She states she feels fine. She did try to ambulate this morning with physical therapy and had an episode of dizziness approximately 80 feet into her session. She did vomit. She was placed back in bed and states she feels fine now. There was no chest pain or shortness of breath. She had similar episode yesterday. She did receive 2 separate 1 L bolus saline infusions yesterday. Vitals have been norm al today. She is hoping to still be discharged home this afternoon. Review of Systems Review of Systems: All systems reviewed & are unremarkable except as noted in HPI & below Physical Exam Physical Exam: Patient's left knee already has the Silverlon dressing in place. Left knee has intact motor function to the ankle and toes. Intact motor function to the knee. Neurologic: Gross sensation is intact across the left leg by soft touch. Agree with above findings. Calf is soft and nontender. Results & Data Vital Signs (Past 12 Hours) Vital Signs Temp Pulse Resp BP Pulse Ox 02/11/19 09:58 96 02/11/19 07:47 36.7 C 72 16 104/67 91
--- NOTE | 2019-02-15 11:03 | Discharge Summary ---
DISCHARGE SUMMARY DESCRIPTION: Left knee osteoarthritis with left knee pain, failing conservative treatment, patient electing to undergo a total knee replacement. ADMISSION DIAGNOSIS: Left knee osteoarthritis. DISCHARGE DIAGNOSIS: Left knee osteoarthritis, status post left total knee replacement on 02/09/2019. CONDITION ON DISCHARGE: Stable. PROCEDURE PERFORMED: Left total knee arthroplasty 02-09-19 CONSULTATIONS: Anesthesia. HOSPITAL COURSE: A 68-year-old female was admitted status post left total knee arthroplasty with spinal anesthetic. Initially, patient had low blood pressure with symptoms of lightheadedness postoperatively. She was given on 2 separate occasions a liter of normal saline bolus. Her blood pressure did improve. The lightheadedness also improved; however, she also was having some mild nausea noted with physical therapy. This led to her staying in the hospital 2 nights. She eventually recovered well. She continued to work with PT and was able to ambulate with the use of a walker and the left knee immobilizer with minimal assistance. She did well on oral pain medication. She was able to tolerate a p.o. diet. She was able to void without difficulty. Her dressings were removed on postop day 2 and a Silverlon waterproof dressing was applied. After having 2 sessions of physical therapy, on postop day 2, she was deemed stable to go home as she had no residual lightheadedness or nausea. She spoke to social media sr strategy manager. Her family was present. She prefers to go home with home health. Those arrangements were made. She was discharged on postop day #2 on 02/11/2019 in the p.m. DISCHARGE INSTRUCTIONS AND MEDICATIONS: The patient is to be discharged home with home health physical therapy with the use of a walker for ambulation. She no longer requires the left knee immobilizer for ambulation as she is 48 hours postop. Diet is regular. Activity is weightbearing as tolerated. She will continue with her home exercise program exercises until home health comes to her home. She will be discharged on Lovenox 30 mg b.i.d. for 3 weeks followed by aspirin 81 mg b.i.d. for 3 weeks. She will use ANGELA hose on bilateral lower extremities for at least the first 2 weeks until she follows up in our office. She was given also prescriptions for Celebrex 200 mg b.i.d. x6 weeks, vitamin C 500 mg b.i.d. x2 weeks, ferrous sulfate 325 mg b.i.d. x2 weeks, Zofran 4 mg q.8 hours as needed for nausea, oxycodone 5 mg 30 tablets 1-2 every 4-6 hours p.r.n. pain. I also recommended she use [id number]-aaquosk Tylenol as an adjunct for chrc-rz-stuospok pain 1000 mg every 6-8 hours. The patient has a waterproof dressing that should remain on until she follows up in the office. She is aware to contact the office if she has any further problems, questions, or concerns or to go to the Emergency Room. She is aware of her followup appointment in the office in 2 weeks postoperatively for a wound check. JUAN
== END 2019-02-11 15:20 | disposition home health service (06) | DRG 470 ==
LOC: OBSVTOIN 10:44

== ENCOUNTER 2024-03-30 05:13 | Observation (INO) ==
--- NOTE | 2024-02-20 10:45 | PAT Medication Instructions ---
Medication Instructions Date of Service February 20, 2024 Home Medications calcium carbonate (Calcium 500) 500 mg PO QAM multivitamin 1 tab PO QAM vit C 250 mg-vit E 90 mg-zinc 40 mg-copper 1 mg-efwxwo-ewdrul capsule (PreserVision AREDS-2) 1 tab PO QAM ascorbic acid (vitamin C) 1,000 mg tablet (Vitamin C) 1 g PO QAM ferrous sulfate 325 mg (65 mg iron) tablet (Iron (ferrous sulfate)) 325 mg PO 3XWK cholecalciferol (vitamin D3) 125 mcg (5,000 unit) tablet (Vitamin D3) 5,000 unit PO QAM ondansetron 4 mg disintegrating tablet 4 mg PO Q6H PRN methimazole 5 mg tablet 10 mg PO QAM triamcinolone acetonide 0.5 % topical cream 1 applic topical UD PRN zoledronic acid 5 mg/100 mL in mannitol 5 %-water intravenous piggybck (Reclast) 1 ea IV UD ASK your prescriber and surgeon zoledronic acid 5 mg/100 mL in mannitol 5 %-water intravenous piggybck (Reclast) 1 ea IV UD STOP taking 2 weeks before surgery (or as soon as possible if surgery is within 2 weeks) vit C 250 mg-vit E 90 mg-zinc 40 mg-copper 1 bw-kvarzc-qhhpdj capsule (PreserVision AREDS-2) 1 tab PO QAM STOP taking 24 hours before surgery triamcinolone acetonide 0.5 % topical cream 1 applic topical UD PRN DO NOT take the morning of surgery calcium carbonate (Calcium 500) 500 mg PO QAM multivitamin 1 tab PO QAM ascorbic acid (vitamin C) 1,000 mg tablet (Vitamin C) 1 g PO QAM ferrous sulfate 325 mg (65 mg iron) tablet (Iron (ferrous sulfate)) 325 mg PO 3XWK cholecalciferol (vitamin D3) 125 mcg (5,000 unit) tablet (Vitamin D3) 5,000 unit PO QAM Take morning of surgery With a small sip of water, OTHERWISE NOTHING TO EAT OR DRINK AFTER MIDNIGHT: ondansetron 4 mg disintegrating tablet 4 mg PO Q6H PRN(if needed) methimazole 5 mg tablet 10 mg PO QAM Take evening before surgery ondansetron 4 mg disintegrating tablet 4 mg PO Q6H UT(if needed) Other Notes If you have any questions please call us at [phone] or [phone] or [phone] or [phone]
--- NOTE | 2024-02-25 13:41 | Anesthesiology Consultation ---
Date of Service February 25, 2024 Assessment & Plan (1) Encounter for pre-operative examination: - Infectious disease screening: Per assessment on 02/25/24: No known recent infectious disease contacts or current infectious disease symptoms. - Outpatient joint assessment: Pt currently scheduled for inpatient pathway. If surgeon requests review for outpatient joint pathway, patient is not recommended candidate for outpatient joint program from anesthesia standpoint based on available information. - Patient unable to void at PAT visit. Per PAT tech, patient will take urine specimen to [facility] in near future ("this week"). Patient acceptable risk for surgery pending surgeon-ordered preop UA and PCP preop evaluation ([facility], appt 03/09). Chart Review Chart Review: Patient seen in Pre Admission Testing Teaching & Discussion Pre-Anesthesia Teaching/Discussion Notes: Instructed NPO after midnight before surgery,except medications with 15 cc of water. Medication instructions provided according to the PAT guidelines. History Surgery Operation Date: 03/30/24 07:00 Proposed Procedures p Right Total Knee Arthroplasty - Bernardino Syed Delgadillo MD Height/Weight Height: 5 ft 7 in Weight: 79.5 kg Allergies Allergy/AdvReac Type Severity Reaction Status Date / Time No Known Allergies Allergy Verified 02/19/24 14:01 Medications Home Medications Medication Instructions Recorded Confirmed Last Taken calcium carbonate (Calcium 500) 500 mg PO QAM 01/12/19 02/19/24 04/09/20 multivitamin 1 tab PO QAM 01/12/19 02/19/24 03/28/21 16:00 vit C 250 mg-vit E 90 mg-zinc 40 1 tab PO QAM 04/03/20 02/19/24 03/28/21 16:00 mg-copper 1 [id number] capsule (PreserVision AREDS-2) ascorbic acid (vitamin C) 1,000 mg 1 g PO QAM 03/06/21 02/19/24 03/28/21 08:00 tablet (Vitamin C) ferrous sulfate 325 mg (65 mg 325 mg PO 3XWK 07/30/23 02/19/24 Unknown iron) tablet (Iron (ferrous sulfate)) cholecalciferol (vitamin D3) 125 5,000 unit PO QAM 09/19/23 02/19/24 Unknown mcg (5,000 unit) tablet (Vitamin D3) ondansetron 4 mg disintegrating 4 mg PO Q6H PRN nausea and vomiting 09/19/23 02/19/24 Unknown tablet methimazole 5 mg tablet 10 mg PO QAM 02/19/24 02/19/24 Unknown triamcinolone acetonide 0.5 % 1 applic topical UD PRN itching 02/19/24 02/19/24 Unknown topical cream zoledronic acid 5 mg/100 mL in 1 ea IV UD 02/19/24 02/19/24 Unknown mannitol 5 %-water intravenous piggybck (Reclast) Past Medical History Medical History Atherosclerosis of artery Per records, patient unaware Borderline high cholesterol GERD (gastroesophageal reflux disease) History of colon polyps History of COVID-19 (2022) Symptoms resolved History of diverticulitis Hx 1+ years ago History of DVT (deep vein thrombosis) (2017) RLE > PE History of iron deficiency History of pulmonary embolism (2017) RLE > PE Intraductal papillary mucinous neoplasm of pancreas Under surveillance, stable Low blood pressure reading Chronic Occipital neuralgia Osteoarthritis Osteopenia Subclinical hyperthyroidism Follows with [facility] endocrine Taking Methimazole Thyroid nodule Stable, under surveillance Exercise / Class Metabolic Activity II 4-5 Yardwork/Stairs/Walk up hill (one FS: No CP, no SOB) Past Family History Family History Grandmother (Maternal) Breast cancer Other No family history of adverse response to anesthesia Denies family history of Ovarian cancer Prostate cancer Myocardial infarction Colorectal cancer Past Surgical History Surgical History History of cholecystectomy History of colonoscopy History of esophagogastroduodenoscopy (EGD) History of esophagogastroduodenoscopy (EGD) (2020) EGD with Gastric Biopsy History of postoperative nausea and vomiting History of tonsillectomy S/P repair of paraesophageal hernia x2 hiatal hernia S/P total knee arthroplasty Left Past Anesthesia History No Hx of Anesthesia Complications and No Family Hx of Anesthesia Complications History of PONV History of PONV (+ nausea) and Hx of Motion Sickness Social History Smoking Status: Never smoker Do You Dip or Chew Tobacco: No Hx Alcohol Use: Yes Alcohol type: wine alcohol intake frequency: a few times a week Hx Substance Use: No substance use type: does not use Review of Systems Patient denies chest pain, shortness of breath, dyspnea on exertion, fever, chills, cough, wheezing, palpitations. Physical Exam Vital Signs BP 109/70 P 73 TEMP 98.2 SP02 96%RA RESP 16 Physical Mildly decreased cervical extension range of motion. Full TMJ range of motion. TMD 3.5 finger breaths Mallampati Score I Dentition: intact, + crowns Lungs: clear throughout to auscultation Cardiac: regular rate and rhythm, no murmurs noted Carotid arteries: negative bruit Extremities: no LE edema Lab Results Anesthesia Preop Results Results Anesthesia Widget: WBC 7.08 K/ul (4.8-10.8) 02/25/24 Hgb 12.9 g/dl (12.0-16.0) 02/25/24 Hct 38.9 % (37.0-47.0) 02/25/24 Plt 277 K/uL (130-400) 02/25/24 Na 140 mmol/L (136-145) 02/25/24 K 4.4 mmol/L (3.5-5.1) 02/25/24 Cl 106 mmol/L (98-107) 02/25/24 CO2 30 mmol/L (21-32) 02/25/24 BUN 21 mg/dl (6-23) 02/25/24 Creat 0.89 mg/dl (0.6-1.2) 02/25/24 Glucose Level 118 mg/dl (70-99(Fasting)) H 02/25/24 PT 10.3 Seconds (9.0-12.0) 02/25/24 PTT 25 Seconds (21-31) 02/25/24 INR 0.9 (0.9-1.1) 02/25/24 Blood Type A Positive 02/25/24 Antibody Screen NEGATIVE 02/25/24 Testing Laboratory Results TSH (08/06/23): 0.070 Free T4 (08/06/23): 0.95 Electrocardiogram Date: 02/25/24 NSR at 70bpm. "Normal ECG" Chest X-Ray Date: 02/25/24 FINDINGS: No lines and tubes are seen. The cardiomediastinal silhouette is normal. The lungs are clear. No evidence of pleural effusion or pneumothorax. IMPRESSION: No acute chest disease. Other Testing Carotid doppler Date: 08/14/23 <50% B/L ICA stenosis. Antegrade flow b/l vertebral arteries. Thyroid scan with uptake Date: 09/10/23 Decreased 24 hour thyroid uptake. Right thyroid cold nodule. Correlation with tissue sampling recommended.
[2024-03-30] MEDS: LR 500ML BOLUS, THEN 15ML/HR IV SCH (05:59)
[2024-03-30] MEDS: LR 60ML/HR IV SCH (05:59)
[2024-03-30] MEDS: ACETAMINOPHEN 500 MG TAB PO SCH ×2 (05:59→13:23)
[2024-03-30] MEDS: CeleBREX 200 MG CAP PO SCH (05:59)
[2024-03-30] MEDS: Scopolamine 1 MG TDSY TD SCH (05:59)
[2024-03-30] MEDS ORDERED: ROPIVACAINE 0.5% 5 MG/ML 30 ML VIAL ONE (06:18)
[2024-03-30] MEDS ORDERED: BUPIVACAINE 0.5 % 5 MG/1 ML PF 10ML VIAL ONE (06:18)
--- NOTE | 2024-03-30 06:37 | History & Physical Bridge Note ---
Date of Service March 30, 2024 History & Physical Bridge Note I have examined the patient, reviewed the History & Physical and in the interval since the performance of the History & Physical I have noted the following changes of clinical significance: no changes noted
[2024-03-30] MEDS ORDERED: fentaNYL citrate PF 100 MCG/2 ML VIAL ONE (06:39)
[2024-03-30] MEDS ORDERED: MIDAZOLAM HCL 1 MG/ML 2ML VIAL ONE (06:39)
[2024-03-30] MEDS ORDERED: ePHEDrine sulfate 50 MG/ML AMP IV PRN (06:43)
[2024-03-30] MEDS ORDERED: fentaNYL citrate PF 100 MCG/2 ML VIAL IV PRN (06:43)
[2024-03-30] MEDS ORDERED: HYDROmorphone INJ 1 MG/ML SYRINGE IV PRN (06:43)
[2024-03-30] MEDS ORDERED: ONDANSETRON INJ 2 MG/ML 2 ML VIAL IV PRN ×2 (06:43→10:28)
[2024-03-30] MEDS ORDERED: ATROPINE SULFATE 0.1 MG/ML 10ML SYR IV PRN (06:43)
[2024-03-30] MEDS: TRANEXAMIC ACID 1,000 MG **IV Pre-op IV SCH (06:47)
[2024-03-30] MEDS: ceFAZolin 2000MG 2,000 MG/15 ML SYR IV SCH ×2 (07:05→14:42)
[2024-03-30] MEDS ORDERED: ONDANSETRON INJ 2 MG/ML 2 ML VIAL ONE (07:14)
[2024-03-30] MEDS ORDERED: PROPOFOL IV EMULSION 10 MG/ML 20 ML VIAL IV ONE ×2 (07:21→08:43)
[2024-03-30] MEDS ORDERED: LIDOCAINE 2% 2 ML VIAL/AMP(20MG/ML) INFIL ONE (07:21)
[2024-03-30] MEDS: ROPIV 0.5% 246mg, Ketorolac 30mg, EPINEPHrine 0.5mg in NSS INFIL SCH (07:36)
[2024-03-30] MEDS ORDERED: PHENYLEPHRINE HCL 10 MG/ML VIAL ONE (07:38)
[2024-03-30] MEDS ORDERED: DEXAMETHASONE SOD INJ 4 MG/ML VIAL ONE (07:40)
[2024-03-30] MEDS: TRANEXAMIC ACID 1,000 MG **IV Intra-op IV SCH (08:41)
--- NOTE | 2024-03-30 09:10 | Post Operative Brief Note ---
Immediate Post Op Note Date of Surgery March 30, 2024 Pre & Post Diagnosis Operation Date: 03/30/24 07:00 Pre-Op Diagnosis: Right Knee Osteoarthritis Post-Op Diagnosis: Right Knee Osteoarthritis I identified the patient and participated in the time-out.: Yes Procedure Operation Date: 03/30/24 07:00 Actual Procedures p Right Total Knee Arthroplasty(Right) - Bernardino Delgadillo MD Surgeon Bernardino Delgadillo MD Telephone Interviewer Vin Abbott PA-C (No fellow avail) Estimated Blood Loss 50 Findings Consistent with Post-Op Diagnosis Fluids 1200 cc Specimens Right knee contents Anesthesia Type MAC Spinal Regional Complications none
--- NOTE | 2024-03-30 09:10 | Operative Report ---
Post Operative Report Pre & Post Diagnosis Operation Date: 03/30/24 07:00 Pre-Op Diagnosis: Right Knee Osteoarthritis Post-Op Diagnosis: Right Knee Osteoarthritis I identified the patient and participated in the time-out.: Yes Procedure Operation Date: 03/30/24 07:00 Actual Procedures p Right Total knee replacement, imageless computer assisted navigation (Right) - Bernardino Delgadillo MD Surgeon Bernardino Delgadillo MD Warehouse Hand Vin Abbott PA-C (No fellow avail) Estimated Blood Loss 50 Findings See Below Examined Under Anesthesia: ROM -- There was 5 degrees to 130 degrees of flexion Ligamentous examination -- revealed stable Cali, posterior drawer, varus and valgus stress at 5 and 30 degrees. [place]bridge Grade IV changes of all 3 compartments. There were marginal osteophytes. Fluids 1200 cc Specimens Right knee contents Anesthesia Type MAC Spinal Regional Complications none Indications This is a 73-year-old female who has clinical and radiographic findings consistent with osteoarthritis of the a right knee. I recommended that a right total knee replacement be performed. The patient understands the risks of surgery, which include but not limited to: bleeding, infection, re-operation, damage to nerves and arteries, continued knee pain, knee stiffness, DVT, and . The patient understands all these instructions and explanations, all his questions have been satisfactorily addressed and the patient has elected to proceed. Informed consent was signed. Description of Procedure IMPLANTS: 1. Femur: Triathlon #5 Right PS. 2. Tibia: Triathlon #5 [place]. 3. Insert: Triathlon #5 x 9 mm PS X3 poly. 4. Patella: Triathlon A32 x 10 mm X3 poly. 5. Palacos cement. Vin Abbott PA-C is assisting with positioning, retracting, and closure due to fellow not available. Procedure: The patient was taken to the Operating Room and placed in the supine position after spinal and adductor canal nerve block was administered. My initials and a multidisciplinary time-out were used to identify the right leg as the correct operative limb. A tourniquet was placed high in the thigh. Prior to the incision, 2 grams of intravenous Ancef were given. One g of TXA was given pre- operatively and another after the tourniquet was released. The right leg was then prepped and draped in a standard sterile fashion. An Esmarch was used to exsanguinate the leg and the tourniquet was inflated to 250 mmHg. The planned mid-line 20 cm incision was created exposing the extensor mechanism. The medial parapatellar arthrotomy was made and the patella was everted. The patella was addressed first. It was prepared by reaming from 22 mm down to 12 mm. An A32 button was found to fit best. The peg holes were made in the standard fashion. The femur was addressed next and using computer assisted OrthoAlign with 3 degrees of flexion and 0 degrees of valgus, removing 10 mm in the standard fashion for the distal cut. The cut was made and the 4-in-1 cutting block for a size 5 femur was placed. These cuts and the cuts to place the box were made in the standard fashion. Our attention was then drawn to the tibia cut with using imageless computer assisted OrthoAlign, taking 2 mm from the medial low side. There was sufficient extension and flexion gap to fit a 9 mm spacer. A #5 Tibial baseplate fit well. A trial with a 9 mm spacer showed excellent stability in both flexion and extension, with good ligament balance, and thumbs free patellar tracking. Range of motion of 0-135 degrees. The tibial baseplate was prepped for the keel and stem. All components were removed. 90 ml of total knee cocktail were injected into the soft tissues and periosteum. All surfaces were copiously irrigated prior to placement of the components. The femoral component followed by Tibial baseplate were cemented in place and the 9 mm X3 poly was placed. Next, the patellar button was placed using the same cement. Once the cement had cured, the range of motion and stability were unchanged. The tourniquet was deflated. Hemostasis was obtained. Another 1g TXA was given. The extensor mechanism was closed with 1-0 Vicryl and 0 Stratafix with the knee bent approximately 60 degrees in a standard fashion. The peritenon and deep fascia was closed with 2-0 Vicryl. The subcutaneous layer was closed with 3-0 Vicryl. The skin was closed with Zipline and shield. The limb was cleaned and dried. 4x4 dressing was placed over top followed by ABDs, sterile Webril, and a foot to thigh Rafael bandage. The patient was then transferred to the Recovery Room in stable condition. The sponge and needle counts were correct. POST-OP INSTRUCTIONS: The patient will be WBAT. The patient will be admitted to the hospital. Complete 24-hour course antibiotics. Labs will be obtained during the stay. DVT prophylaxis will include Eliquis for 6 weeks, TEDs, and mechanical foot pumps. The dressing will be changed postop day #2-3 and covered with a Silverlon dressing. I attest to the content of the Intraoperative Record and any orders documented therein. Any exceptions are noted below.
--- NOTE | 2024-03-30 09:28 | Operative Report ---
Post Operative Report Pre & Post Diagnosis Operation Date: 03/30/24 07:00 Pre-Op Diagnosis: Right Knee Osteoarthritis Post-Op Diagnosis: Right Knee Osteoarthritis I identified the patient and participated in the time-out.: Yes Procedure Operation Date: 03/30/24 07:00 Actual Procedures p Right Total Knee Arthroplasty(Right) - Bernardino Delgadillo MD Surgeon Dr Delgadillo Art Manager Vin Abbott PA-C (No fellow avail) Estimated Blood Loss 50 Findings Consistent with Post-Op Diagnosis Specimens right knee bone Description of Procedure Pt was taken to operating room and properly positioned for procedure. Refer to anesthesia's note for anesthesia used. Pt was given pre-op antibiotics. Prepped and draped in sterile fashion. I was present during the entire case and assisted with positioning, instrumentation, closure and dressings. Please see surgeon's op report for further detail. Pt was awake and transferred to PACU in stable condition I attest to the content of the Intraoperative Record and any orders documented therein. Any exceptions are noted below.
--- NOTE | 2024-03-30 10:14 | XRay Report ---
XR knee RT 1 or 2V routine CLINICAL HISTORY: Postoperative evaluation. COMPARISON: Right knee radiographs September 11, 2023. FINDINGS: Alignment of the total right knee arthroplasty is anatomic. There is no fracture or unexpe cted radiopaque foreign body IMPRESSION: Expected findings following total right knee arthroplasty. ACT 112: Negative or not required by law. Electronically signed by: Robbie Aviles M.D. 03/30/2024 10:13 AM
[2024-03-30] MEDS ORDERED: MAGNESIUM HYDROXIDE SUSP 30 ML UDC PO PRN (10:28)
[2024-03-30] MEDS ORDERED: HYDROmorphone INJ 0.5 MG/0.5 ML SYR IV PRN (10:28)
[2024-03-30] MEDS ORDERED: METOCLOPRAMIDE HCL INJ 5 MG/ML 2 ML VIAL IV PRN (10:28)
[2024-03-30] MEDS ORDERED: diphenhydrAMINE Capsule 25 MG CAP PO PRN (10:28)
[2024-03-30] MEDS ORDERED: NALOXONE HCL 0.4 MG/1 ML VIAL/CARP IV PRN (10:28)
[2024-03-30] MEDS ORDERED: ZOLEDRONIC ACID 5 MG/100 ML VIAL IV SCH (10:28)
[2024-03-30] MEDS ORDERED: bisacodyL 10 MG SUPP PR PRN (10:28)
--- NOTE | 2024-03-30 11:02 | Anesthesiology Progress Note ---
Date of Service March 30, 2024 Anesthesia Post Procedure Vital Signs Vital Signs: Temp Pulse Pulse Resp BP BP Pulse Ox 03/30/24 10:50 36.6 C 64 16 115/69 95 03/30/24 10:10 61 17 121/68 96 03/30/24 10:00 52 L 17 122/64 98 03/30/24 09:50 58 L 17 122/58 L 94 03/30/24 09:40 56 L 17 112/64 100 03/30/24 09:30 56 L 19 119/63 99 03/30/24 09:23 36.3 C L 68 19 128/78 100 03/30/24 05:43 36.5 C 59 L 18 128/78 94 O2 Del Method O2 Flow Rate 03/30/24 10:50 Room Air 03/30/24 10:10 Room Air 03/30/24 10:00 Room Air 03/30/24 09:50 Room Air 03/30/24 09:40 Oxymask 5 03/30/24 09:30 Oxymask 5 03/30/24 09:23 Oxymask 5 03/30/24 05:43 Room Air Transfer of Care Handoff Completed per policy Notes Mental Status: alert / awake / arousable and participated in evaluation Patient Amnestic to Procedure: Yes Nausea / Vomiting: adequately controlled Pain: adequately controlled Airway Patency, RR, SpO2: stable & adequate BP & HR: stable & adequate Hydration State: stable & adequate Neuraxial Anesthesia: was administered and sensory block is resolving Anesthetic Complications: no major complications apparent and Pt Satisfied with anesthetic care
[2024-03-30] MEDS: ORTHO JOINT ANESTHETIC ONE (12:36)
[2024-03-30] MEDS: Scopolamine CHECK PATCH PLACEMENT SCH (16:57)
[2024-03-30] MEDS: oxyCODONE HCL IR 5 MG TAB (IMMEDIATE RELEASE) PO PRN (16:57)
[2024-03-30] MEDS: FERROUS GLUCONATE 324 MG TAB PO SCH (17:01)
--- NOTE | 2024-03-30 19:28 | Orthopedic Progress Note ---
Date of Service March 30, 2024 Assessment & Plan (1) Osteoarthritis: Plan: POD #0 s/p R TKA, doing as well as expected. Resume diet. WBAT with walker. Complete 24 hrs Ancef OOB to chair. Continue pain control. Check labs tomorrow. DVT prophylaxis: TEDs 3 weeks, foot pumps while in hospital, Eliquis for 6 weeks. PT/OT. D/C planning. Dressing to be changed POD 2-3 to Silverlon type dressing. Admission and Anticipated Discharge Date Admission Date: March 30, 2024 Subjective Doing well Physical Exam Physical Exam: RLE: BCR < 2 sec. Sensation to light touch intact distally. Wiggling ankle and toes. Calf soft and non-tender. Dressing is clean, dry, intact. Able to perform straight leg raise. Results & Data Vital Signs (Past 12 Hours) Vital Signs Temp Pulse Pulse Resp BP BP Pulse Ox 03/30/24 13:21 36.8 C 72 18 109/76 94 03/30/24 12:20 36.7 C 68 16 108/65 94 03/30/24 11:26 36.4 C L 64 16 116/67 93 03/30/24 10:50 36.6 C 64 16 115/69 95 03/30/24 10:20 36.4 C L 66 18 121/72 96 03/30/24 10:10 61 17 121/68 96 03/30/24 10:00 52 L 17 122/64 98 03/30/24 09:50 58 L 17 122/58 L 94 03/30/24 09:40 56 L 17 112/64 100 03/30/24 09:30 56 L 19 119/63 99 03/30/24 09:23 36.3 C L 68 19 128/78 100 O2 Del Method O2 Flow Rate 03/30/24 13:21 Room Air 03/30/24 12:20 Room Air 03/30/24 11:26 Room Air 03/30/24 10:50 Room Air 03/30/24 10:20 Room Air 03/30/24 10:10 Room Air 03/30/24 10:00 Room Air 03/30/24 09:50 Room Air 03/30/24 09:40 Oxymask 5 03/30/24 09:30 Oxymask 5 03/30/24 09:23 Oxymask 5 Diagnostic Findings XR knee RT 1 or 2V routine CLINICAL HISTORY: Postoperative evaluation. COMPARISON: Right knee radiographs September 11, 2023. FINDINGS: Alignment of the total right knee arthroplasty is anatomic. There is no fracture or unexpected radiopaque foreign body IMPRESSION: Expected findings following total right knee arthroplasty.
[2024-03-30] MEDS: DOCUSATE SODIUM 100 MG CAP PO SCH (20:16)
[2024-03-30] MEDS: SENNA 8.6 MG TAB PO SCH (20:16)
[2024-03-30 22:51] VITALS: PULSE 60
[2024-03-31 03:21] VITALS: TEMP 98.4
[2024-03-31 06:17] LABS: Hematocrit (blood only) 34.1 % (37.0-47.0); Hemoglobin 11.1 g/dl (12.0-16.0); Mean Corpuscular Hemoglobin 30.7 pg (25.0-34.0); Mean Corpuscular Hgb Conc 32.6 g/dL (32.0-36.0); Mean Corpuscular Volume 94.5 fL (80.0-100.0); Mean Platelet Volume 10.4 fL (9.4-12.4); Platelet Count 223 K/uL (130-400); RDW Coefficient of Variation 13.5 % (11.5-14.5); RDW Standard Deviation 47.3 fL (36.4-46.3); Red Blood Count 3.61 M/uL (4.20-5.40)
[2024-03-31 06:32] LABS: BUN Creatinine Ratio 22.3 (10-20); Calcium 8.9 mg/dl (8.6-10.3); Creatinine Clr Calc Pharmacy 55.4 ml/min; Potassium 4.5 mmol/L (3.5-5.1)
--- NOTE | 2024-03-31 06:36 | Orthopedic Progress Note ---
Date of Service March 31, 2024 Assessment & Plan (1) Osteoarthritis: Plan: POD #1 s/p R TKA, doing as well as expected. Resume diet. WBAT with walker. Complete 24 hrs Ancef OOB to chair. Continue pain control. DVT prophylaxis: TEDs 3 weeks, foot pumps while in hospital, Eliquis for 6 weeks. PT/OT. D/C planning home later today if passes PT and pain controlled with oral pain meds. Dressing to be changed POD 2-3 to Silverlon type dressing. Admission and Anticipated Discharge Date Admission Date: March 30, 2024 Subjective Doing well Physical Exam Physical Exam: RLE: BCR < 2 sec. Sensation to light touch intact distally. Wiggling ankle and toes. Calf soft and non-tender. Dressing is clean, dry, intact. Able to perform straight leg raise. Results & Data Vital Signs (Past 12 Hours) Vital Signs Temp Pulse Resp BP Pulse Ox O2 Del Method 03/31/24 03:20 36.9 C 60 18 98/60 L 96 Room Air 03/30/24 22:50 36.7 C 60 18 96/63 L 96 Room Air 03/30/24 21:00 Room Air 03/30/24 20:00 36.8 C 63 18 109/71 96 Room Air Laboratory Results Laboratory Results WBC 9.20 K/ul (4.8-10.8) 03/31/24 05:51 RBC 3.61 M/uL (4.20-5.40) L 03/31/24 05:51 Hgb 11.1 g/dl (12.0-16.0) L 03/31/24 05:51 Hct 34.1 % (37.0-47.0) L 03/31/24 05:51 MCV 94.5 fL (80.0-100.0) 03/31/24 05:51 MCH 30.7 pg (25.0-34.0) 03/31/24 05:51 MCHC 32.6 g/dL (32.0-36.0) 03/31/24 05:51 RDW Std Deviation 47.3 fL (36.4-46.3) H 03/31/24 05:51 RDW Coeff of Jr 13.5 % (11.5-14.5) 03/31/24 05:51 Plt Count 223 K/uL (130-400) 03/31/24 05:51 MPV 10.4 fL (9.4-12.4) 03/31/24 05:51 Sodium 140 mmol/L (136-145) 03/31/24 05:51 Potassium 4.5 mmol/L (3.5-5.1) 03/31/24 05:51 Chloride 108 mmol/L (98-107) H 03/31/24 05:51 Carbon Dioxide 29 mmol/L (21-32) 03/31/24 05:51 Anion Gap 3 (3-11) 03/31/24 05:51 BUN 21 mg/dl (6-23) 03/31/24 05:51 Creatinine 0.94 mg/dl (0.6-1.2) 03/31/24 05:51 Est Cr Clr Drug Dosing 55.4 ml/min 03/31/24 05:51 eGFR 63.67 03/31/24 05:51 BUN/Creatinine Ratio 22.3 (10-20) H 03/31/24 05:51 Glucose 96 mg/dl (70-99(Fasting)) 03/31/24 05:51 Calcium 8.9 mg/dl (8.6-10.3) 03/31/24 05:51 Impressions Knee X-Ray 03/30/24 09:49 XR knee RT 1 or 2V routine CLINICAL HISTORY: Postoperative evaluation. COMPARISON: Right knee radiographs September 11, 2023. FINDINGS: Alignment of the total right knee arthroplasty is anatomic. There is no fracture or unexpected radiopaque foreign body IMPRESSION: Expected findings following total right knee arthroplasty. ACT 112: Negative or not required by law. Electronically signed by: Robbie Aviles M.D. 03/30/2024 10:13 AM
[2024-03-31 08:03] VITALS: RESP 17; O2SAT 95
[2024-03-31] MEDS: APIXABAN 2.5 MG TAB PO SCH (08:18)
[2024-03-31] MEDS: CHOLECALCIFEROL 125 MCG (5,000 UNITS) TAB PO SCH (08:21)
[2024-03-31] MEDS: CEROVITE ADV FORMULA TAB PO SCH (08:21)
[2024-03-31] MEDS: MULTIVITAMIN TAB PO SCH (08:21)
[2024-03-31] MEDS: ASCORBIC ACID 500 MG TAB PO SCH (08:21)
[2024-03-31] MEDS: methIMAzole 5 MG TABLET PO SCH (08:22)
[2024-03-31] MEDS: CALCIUM CARBONATE 500 MG CHEWABLE TAB PO SCH (08:22)
--- NOTE | 2024-03-31 09:53 | Discharge Summary ---
Date of Service March 31, 2024 Principal Diagnosis s/p right total knee arthroplasty Discharge Data Allergies Allergy/AdvReac Type Severity Reaction Status Date / Time metronidazole AdvReac Nausea Verified 03/30/24 17:41 Procedures Performed Operation Date: 03/30/24 07:00 Actual Procedures p Right Total Knee Arthroplasty(Right) - Bernardino Delgadillo MD Hospital Course (1) Osteoarthritis: Patient underwent a right total knee arthroplasty on 03/30/2024 which was uncomplicated. She was observed in the hospital overnight and evaluated the following morning. She is doing well overall and feels that she wants to go home. Pain is well-controlled. Vital signs are stable. She was evaluated by physical therapy and Occupational Therapy and cleared for home, will participate with home health therapy for 2 weeks followed by formal physical therapy. Her postop labs were reviewed showing no leukocytosis, minimal anemia hemoglobin 11.1 likely secondary to acute blood loss anemia from surgery. No other concerns on her labs were noted. Her postoperative x-ray demonstrated expected findings. She will take Tylenol and oxycodone for pain control. Eliquis 2.5 mg twice daily for 6 weeks for DVT prophylaxis. Prescriptions were sent to the pharmacy this morning. Supplement with iron and vitamin C over the next 2 weeks. She will use walker at home. Teds for 3 weeks. She is an appointment scheduled 2 days from now in our office for a dressing change. She will leave the dressing in place until following up in our office. She was instructed to call the office with any concerns. All questions were answered. Total Time Total Time Spent Total Time Spent (In Minutes): 25 Discharge Plan Discharge Items Patient Disposition: Home - Home Health Services Reason For Visit: POST OP RTKA Discharge Diagnosis: s/p right total knee arthroplasty Condition on Discharge: Good Activity: Per Instructions section Non-emergency contact: Surgeon Call non-emergency contact if: your pain is not controlled, your temperature is above 101 and your wound has increased drainage Follow-up/Referrals: Swetha Aviles MD [Primary Care Provider] - Sergio Bell PA-C [Physician [facility]] - 04/02/24 10:45 am Diet: Regular Addtl Attending Provider Instructions: POST OPERATIVE DISCHARGE INSTRUCTIONS Pain Control Please take the follow medications for pain control, as well as icing and elevating your operative extremity. Pain after surgery is to be expected. We may not be able to take away all of your pain, but the goal is to make your pain manageable - Extra strength Tylenol 1,000mg (2 tabs) every 8 hours - Oxycodone 5-10mg (1-2tabs) every 4-6 hours as needed DVT Prophylaxis With any surgery, you are at increased risk for blood clots. Please take the follow measures to prevent blood clots and read the warning signs to watch for. Please take the follow anticoagulant: Eliquis 2.5mg twice daily for 6 weeks If you were given ANGELA compression stockings, these are to be worn on both legs for 18-20 hours daily for 3 weeks Warning signs: Calf pain, lower extremity swelling, numbness/tingling, skin discoloration, increased pain, shortness of breath, chest pain. Please contact our office if you experience any of these symptoms or call 911 if you are having trouble breathing. Ice Ice your operative site at least 5 times a day for 15-30 minutes at a time, for the first three days, then as needed. This will help to reduce swelling and pain. Make sure you have a thin cloth between the ice or cooling unit and your skin to prevent gallo bite. This is especially important if you received a nerve block. Diet/Nausea/Vomiting Start by drinking clear liquids and eating crackers. If you can tolerate this, then you may resume your normal diet. If you feel nauseated or vomit, take Zofran/ondansetron (if prescribed). Please call our office if you have intractable nausea or vomiting, or, if after hours, you may go to the Emergency Room for help. Surgical Dressing Please leave on any dressing until you are seen by either PT or PA for your post-operative appointment, unless you are otherwise instructed. If there are any issues with your dressing please give our office a call. Weight bearing, Range of Motion, Activity You will be weight bearing as tolerated on your operative site. you may use crutches or walker to assist in ambulation. Physical therapy You will do your rehab for the first two weeks with home health. Then you will begin outpatient physical therapy. It is very important you follow your rehab protocol and do your exercises as instructed by your provider and physical therapist. Wound care and showering We will inspect your wound at your first post-operative visit. It is normal to see some dried blood on the dressing. Do not remove your dressing, paper strips or sutures yourself unless otherwise instructed. Showering is allowed post op day 3. Do not scrub or remove any dressings, unless you are otherwise instructed. Once your dressing is changed in the office to the water-resistant dressing. You can shower with this on as long as all the edges are in tact. To promote wound healing, we recommend taking a multi-vitamin, or taking 500mg Vitamin C supplement twice a day for two weeks and 325mg Iron supplement twice a day for two weeks. This is especially important if you had a total joint replacement. Constipation Constipation is a common side effect of narcotic pain medication, dehydration after surgery and iron supplement (if you were instructed to begin that after surgery). We recommend purchasing an xzoi-pol-wkkmcwy laxative such as Milk of Magnesia, Colace, Dulcolax, Miralax or Senna from a local pharmacy, and taking it as instructed. Stay hydrated and you may increase your fiber in your diet as well. Call our clinic if any questions. Driving You may not drive while taking narcotic pain medication or while in a cast, splint, sling or brace. Driving will be discussed at your first post op appointment Return to Work Your return to work depends on what surgery was done and what type of work you do. Please bring any paperwork your employer needs completed to your first post-operative visit. Also, bring a description of your job duties, as this helps us to understand what risks you may face at work. Travel Avoid long distance travel (greater than 1 hour) in airplanes and cars for the first 6 weeks after surgery. Follow-up Please attend your post operative appointments as scheduled. At these appointments, we may do dressing change and remove any sutures/flori/Zip-line 10-14 days after your surgery. If you do not know your post operative appointment dates or times please call the office at [phone] When to call the office It is normal to have swelling and bruising in the limb that was operated on. This will improve with time. It is also normal to have fevers for the first 2 days after surgery. Reasons you should call your doctor include: Uncontrolled pain; Nausea, vomiting, or constipation that does not improve with medication; Fevers over 101.5, chills, sweats; Drainage or bleeding from the wound; Foul odor; Spreading areas of redness; calf pain or swelling, shortness of breath, chest pain; Any other concerns You may call the office at [phone]. If it is a medical emergency please call 911. Pending Studies at Discharge: No Stand-Alone Forms: My [facility], Smoking Cessation Medications and DC Order Prescriptions: New acetaminophen [Tylenol Extra Strength] 500 mg Tablet 1,000 mg PO Q8 Qty: 30 0RF ascorbic acid (vitamin C) [Vitamin C] 500 mg Tablet 500 mg PO BID Qty: 30 0RF calcium carbonate [Tums] 200 mg calcium (500 mg) Tablet,Chewable 500 mg PO QAM Qty: 30 0RF docusate sodium 100 mg Capsule 100 mg PO BID Qty: 30 0RF ferrous gluconate 324 mg (38 mg iron) Tablet 324 mg PO BIDM Qty: 30 0RF oxycodone 5 mg tablet 5 - 10 mg PO Q4H PRN (Reason: pain) Qty: 18 0RF Rx Instructions: Take 1 tab for pain 1-5 Take 2 tabs for pain 6-10 Eliquis 2.5 mg Tablet 2.5 mg PO BID Qty: 84 0RF Continued methimazole 10 mg tablet 10 mg PO QAM Qty: 30 5RF ondansetron 4 mg tablet,disintegrating See Rx Instructions .ROUTE .COMPLEX Qty: 30 1RF Dose Instruction: DISSOLVE 1 TABLET BY MOUTH EVERY 6 HOURS NEEDED for nausea and vomiting Rx Instructions: DISSOLVE 1 TABLET BY MOUTH EVERY 6 HOURS NEEDED for nausea and vomiting multivitamin Tablet 1 tab PO QAM cholecalciferol (vitamin D3) [Vitamin D3] 125 mcg (5,000 unit) tablet 5,000 unit PO QAM PreserVision AREDS-2 [phone] em-afmd-sn-mg Capsule 1 tab PO QAM triamcinolone acetonide 0.5 % cream 1 applic topical UD PRN (Reason: itching) Rx Instructions: Apply a small amount to affected areas of neck and abdomen topically three times a day PRN; zoledronic ipjh-yebhbmcl-xjvac [Reclast] 5 mg/100 mL Piggyback 1 ea IV UD Patient Comments: yearly ,last dose spring 2023. Held ferrous sulfate [Iron (ferrous sulfate)] 325 mg (65 mg iron) tablet 325 mg PO 3XWK Hold Instructions: Resume on 04/14/24. Patient Comments: mon, wed and fri Rx Instructions: 325 mg orally 3xWeek; Discontinued calcium carbonate [Calcium 500] 500 mg calcium (1,250 mg) Tablet 500 mg PO QAM ascorbic acid (vitamin C) [Vitamin C] 1,000 mg Tablet 1 g PO QAM Admission Data Admit Date/Time: 03/30/24 09:38 Attending Provider: Bernardino Delgadillo Admit Provider: Bernardino Delgadillo Primary Care Provider: Swetha Aviles Other Interventions: Discharge Summary Assessment (RN) Last Done: 03/31/24 10:42
[2024-03-31 10:43] VITALS: BP 121/68
== END 2024-03-31 11:17 | disposition home health service (06) ==
LOC: 3E 05:13 → ASU 05:13